=== PATIENT | male | born 1990 | race Caucasian/White ===

== ENCOUNTER 2019-01-21 09:22 | Emergency (ER) | payer SELFPAY ==
[2019-01-21 09:30] VITALS: BP 116/67; PULSE 60; RESP 16; TEMP 37.1; O2SAT 98; BMI 22.3
--- NOTE | 2019-01-21 09:30 | PC.NURSE ---
pt given fluids taking without difficulty
--- NOTE | 2019-01-21 09:36 | HMH.EDGENADL ---
ED Disposition Clinical Impression: Epididymitis Disposition: Home, Self-Care Condition on Discharge: Good Instructions: DI for Epididymitis Additional Instructions: Follow-up with urology if not improved in 4 to 5 days. Return to the emergency room if severe pain or swelling, fever greater than 102 degrees, or unable to urinate. Prescriptions: Ibuprofen [Ibuprofen 800mg Tab] 800 mg PO Q8HP PRN #15 tab PRN Reason: Moderate Pain Doxycycline Monohydrate [Monodox] 100 mg PO BID #20 cap Referrals: Provider,MD Sayra [Primary Care Provider] - Rhys Mishra MD [Staff Physician] - - Critical Care Critical Care Time: No Attestation: On 01/21/19, the high probability of a clinically significant, sudden or life threatening deterioration of the following system(s) required my full and direct attention, intervention and personal management. The time I documented below is in addition to time spent performing reported procedures but includes the following listed in this critical care notation. Medical Decision Making - Sukhi Inquiry Pt receiving controlled substance: No Vital Signs: 01/21/19 09:30 01/21/19 10:03 Temperature 98.8 F 99.8 F H Temperature Source Oral Oral Pulse Rate 120 H Pulse Rate [Left Radial] 60 Respiratory Rate 16 24 Blood Pressure 0/0 L Blood Pressure [Right Arm] 116/67 Blood Pressure Mean [Right Arm] 83 Blood Pressure Source Automatic Cuff Blood Pressure Source [Right Arm] Automatic Cuff Blood Pressure Position Sitting Blood Pressure Position [Right Arm] Sitting 02 Sat by Pulse Oximetry 98 Oxygen Delivery Method Room Air Room Air - Lab Data Lab Results 01/21/19 09:33: Urine Color Dk yellow, Urine Appearance Clear, Urine pH 6.0, Ur Specific [place] >= 1.030, Urine Protein Negative, Urine Glucose (UA) Negative, Urine Ketones Negative, Urine Blood 1+, Urine Nitrate Negative, Urine Bilirubin Negative, Urine Urobilinogen 0.2, Ur Leukocyte Esterase Negative, Urine RBC 3-5, Urine WBC None, Ur Squamous Epith Cells Occasional, Urine Bacteria Trace Orders (Tests/Meds): ED MEDICATIONS Discontinued Medications Generic Name Dose Route Start Last Admin Trade Name Freq PRN Reason Stop Dose Admin Ceftriaxone Sodium 250 mg 01/21/19 11:15 Rocephin 250mg Vial IM 01/21/19 11:16 ONCE ONE Protocol Ibuprofen 800 mg 01/21/19 11:15 Motrin 400mg Tablet PO 01/21/19 11:16 ONCE ONE Lidocaine HCl 0.9 ml 01/21/19 11:15 Lidocaine 1% 10ml Mdv IM 01/21/19 11:16 ONCE ONE - CT Data CT Scan: Abdomen, Pelvis Time Received: 11:[address] Reviewed: Yes: I have viewed the radiologist's interpretation Preliminary Findings: Normal/NAD - US Data US Images: Other (scrotum) ED US Reviewed: Yes: I have viewed radiologist's interpretation Preliminary Findings: Normal/NAD General Adult HPI - General Chief complaint: PAIN Stated complaint: swollen testicle with pain Time Seen by Provider: 01/21/19 09:36 Mode of Arrival: Ambulatory Limitations: No Limitations Description of Symptoms (Recalled from ER Triage Doc. by RN): to ed per pvt car with c/o pain swelling lt testicle starting yesterday states pain shoots up into abd. c/o nausea, denies vomiting, fever, chills, penile drainage. cpta none - History of Present Illness HPI narrative: 2-day history of left testicular pain and swelling. The pain is in the posterior aspect of his testicle and radiates up into the inguinal area. Denies trauma. No fever noted. Testicular pain increases with urination, but no burning dysuria or discharge present. No previous similar symptoms. Denies recent sexual intercourse. States that he has genital warts, and therefore has been abstinent recently. Denies anal intercourse. - Related Data Previous Rx's Medication Instructions Recorded Doxycycline Monohydrate [Monodox] 100 mg PO BID #20 cap 01/21/19 Ibuprofen [Ibuprofen 800mg Tab] 800 mg PO Q8HP PRN #15 tab 01/21
[2019-01-21 09:44] LABS: Microscopic, Urine URINE MICROSCOPIC (MICROSCOPIC)
--- NOTE | 2019-01-21 09:44 | US_ITS ---
US Testicular CLINICAL INDICATION: ITS.REASON: left testicular pain and swelling ORDERING PHYSICIAN: Roc Servin MD PATIENT AGE: 28 years Comparison: None FINDINGS: Both testicles have an unremarkable appearance. No mass evident. There is bilateral testicular blood flow. Epididymides also have an unremarkable appearance. No significant hydrocele varicocele or hematocele evident IMPRESSION: Unremarkable scrotal ultrasound
[2019-01-21 09:47] LABS: Appearance,Urine CLEAR (Clear); Bilirubin,Urine Negative (Negative); Blood, Urine 1+ (Negative); Color,Urine DK YELLOW (Yellow); Glucose,Urine (UA) Negative (Negative); Ketones,Urine Negative (Negative); Leukocyte Esterase,Urine Negative (Negative); Nitrate,Urine Negative (Negative); Protein,Urine Negative (Negative); Specific Gravity, Urine >= 1.030 (1.005-1.030); Urobilinogen,Urine 0.2 EU/dl (0.2)
--- NOTE | 2019-01-21 09:55 | PC.NURSE ---
US aware of orders
[2019-01-21 10:01] LABS: Bacteria,Urine Trace /lpf; Squamous Epithelial Cell,Urine Occasional #/hpf (0-5)
[2019-01-21 10:03] VITALS: BP 0/0; PULSE 120; RESP 24; TEMP 37.7; O2SAT 98
--- NOTE | 2019-01-21 10:04 | CT_ITS ---
CT abdomen pelvis wo con CLINICAL INDICATION: Hematuria with left lower quadrant pain ITS.REASON: L testicle pain, hematuria, r/o stone ORDERING PHYSICIAN: Roc Servin MD PATIENT AGE: 28 years COMPARISON: 02/24/2013 TECHNIQUE: Axial images obtained with sagittal and coronal reformats. All CT scans at the facility use one or more dose reduction, viz: automated exposure control, ma/kV adjustment per patient size (including targeted exams where dose is matched to indication, i.e. head), or iterative reconstruction technique. PROCEDURE: Oral Contrast: None IV Contrast: None . FINDINGS: Lower thorax: No acute finding The liver, gallbladder, spleen, adrenal glands, and pancreas have an unremarkable appearance. No renal or ureteral calculi. No hydronephrosis. Prior appendectomy. No evidence of diverticulitis. No intestinal obstruction or free air. Unremarkable appearing urinary bladder. There are scattered small inguinal nodes. No acute bony anomalies. IMPRESSION: No acute finding
--- NOTE | 2019-01-21 10:36 | PC.NURSE ---
return from ct
[2019-01-21 11:32] VITALS: BP 123/74; PULSE 62; RESP 16; TEMP 36.6; O2SAT 97
[2019-01-23 07:32] LABS: Neisseria gonorrhoeae, NAA Negative (Negative)
== END 2019-01-21 11:33 | disposition home or self-care (01) ==
PROVIDERS: Emergency Provider Emergency Medicine
DX: N45.1 Epididymitis (principal); Z88.5 Allergy status to narcotic agent; F17.210 Nicotine dependence, cigarettes, uncomplicated
CPT/HCPCS: 74176; 76870; 81001; 87491; 87591; 96372; 99283

== ENCOUNTER 2019-12-23 03:37 | Emergency (ER) | payer MEDICAID, SELFPAY ==
--- NOTE | 2019-12-23 03:45 | PC.NURSE ---
pt arrives via ambulation, placed in room 1. aunt at bedside due to issues with head.
[2019-12-23 03:55] VITALS: BP 147/91; PULSE 80; RESP 16; TEMP 37.1; O2SAT 100; BMI 22.1
--- NOTE | 2019-12-23 04:05 | CT_ITS ---
PROCEDURE: CT HEAD/BRAIN WO CON CLINICAL INDICATION: seizure Possible seizure COMPARISON: No exams were available for comparison TECHNIQUE: Axial images obtained. All CT scans at the facility use one or more dose reduction, viz: automated exposure control, ma/kV adjustment per patient size (including targeted exams where dose is matched to indication, i.e. head), or iterative reconstruction technique. FINDINGS: No midline shift, mass effect, intracranial hemorrhage, hydrocephalus, or extra-axial fluid collection is evident. The calvarium has an unremarkable appearance. No mastoid effusion. No sinus air-fluid level. There is prominence of the retropharyngeal soft tissues as noted on the lateral referral nurse view versus overlying juxtaposed soft tissues. IMPRESSION: 1. No acute intracranial findings. 2. Prominent retropharyngeal soft tissues versus summation density on the referral nurse view. Dictated by: Chetan Gonzalez MD 12/23/2019 06:45 Electronically signed by Chetan Gonzalez MD in [facility] 12/23/2019 06:45
--- NOTE | 2019-12-23 04:16 | PC.NURSE ---
pt agreeable to having blood obtained and sent for evaluation. tells nursing he thinks he got high on meth today. no family at bedside at this time.
[2019-12-23 04:23] LABS: Basophils # 0.2 K/mm3 (0-0.2); Basophils % 2.2 % (0.1-2.0); Eosinophils # 0.2 K/mm3 (0.0-0.4); Eosinophils % 2.1 % (0.1-12.0); Hematocrit 43.4 % (42.0-52.0); Lymphocytes # 0.9 K/mm3 (0.7-4.5); Lymphocytes % 9.9 % (10-50); Mean Corpuscular HGB Conc 34.5 g/dL (31.8-35.4); Mean Corpuscular Hemoglobin 31.4 pg (27.0-31.2); Mean Corpuscular Volume 91.1 fl (80-94); Mean Platelet Volume 7.2 fl (7.4-10.4); Monocytes # 0.8 K/mm3 (0.1-1.0); Monocytes % 8.5 % (1.7-9.3); Neutrophils # 6.9 K/mm3 (1.8-7.8); Neutrophils % 77.2 % (37.0-80.0); Platelet Count 276 K/mm3 (142-424); Red Blood Count 4.76 M/mm3 (4.60-6.20); Red Cell Distribution Width 14.9 % (11.5-17.5)
[2019-12-23 04:24] LABS: Appearance,Urine CLEAR (Clear); Blood, Urine TRACE-L (Negative); Color,Urine YELLOW (Yellow); Glucose,Urine (UA) Negative (Negative); Ketones,Urine TRACE (Negative); Leukocyte Esterase,Urine Negative (Negative); Microscopic, Urine URINE MICROSCOPIC (MICROSCOPIC); Nitrate,Urine Negative (Negative); Protein,Urine 1+ (Negative); Urobilinogen,Urine >=8.0 EU/dl (0.2)
[2019-12-23 04:25] LABS: Bilirubin,Urine Negative (Negative)
[2019-12-23 04:25] LABS: Chloride 103 mmol/L (98-107); Sodium 139 mmol/L (136-145)
[2019-12-23 04:28] LABS: Alanine Aminotransferase 46 U/L (12-78); Albumin Level 4.3 g/dl (3.5-5.0); Albumin/Globulin Ratio 1.3 (1.1-1.8); Alkaline Phosphatase 68 U/L (38-126); Anion Gap 10.9 mEq/L (5-15); Aspartate Amino Transferase 31 U/L (17-59); Bilirubin,Total 1.3 mg/dl (0.2-1.3); Blood Urea Nitrogen 10 mg/dl (9-20); Calcium 9.3 mg/dl (8.4-10.2); Carbon Dioxide 28 mmol/L (22.0-30.0); Creatinine Clearance Estimated 133 mL/min (50-200); Estimated Glomerular Filt Rate 116 ml/min (>60); GFR (African American) 140 ML/MIN (>60); Globulin 3.3 g/dL (1.3-3.2); Glucose 93 mg/dl (74-100); Total Protein,Serum 7.6 g/dl (6.3-8.2)
[2019-12-23 04:37] LABS: Barbiturates Screen,Urine Negative ng/ml (<200)
[2019-12-23 04:38] LABS: Benzodiazepines Screen,Urine Negative ng/ml (<200); Cannabinoid Screen,Urine Negative ng/ml (<50)
[2019-12-23 04:39] LABS: Cocaine Screen,Urine Positive ng/ml (<300)
[2019-12-23 04:39] LABS: Ethyl Alcohol < 10 mg/dl (0-10); Salicylate < 1.0 mg/dL (2.0-20.0)
[2019-12-23 04:40] LABS: Methadone Screen,Urine Negative ng/ml (<300); Opiate Screen,Urine Negative ng/ml (<300)
[2019-12-23 04:40] LABS: Potassium 2.9 mmoL/L (3.5-5.1)
[2019-12-23 04:41] LABS: Phencyclidine Screen,Urine Negative ng/ml (<25)
[2019-12-23 04:42] LABS: Bacteria,Urine Trace /lpf
[2019-12-23 04:55] VITALS: BP 152/89; PULSE 110; RESP 16; O2SAT 100
[2019-12-23 05:43] VITALS: BP 147/87; PULSE 100; RESP 16; O2SAT 100
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
[2019-12-23 06:28] VITALS: BP 142/85; PULSE 88; RESP 16; TEMP 37.1; O2SAT 97
[2019-12-26 05:08] LABS: Amphetamine Positive (.); Amphetamines Positive (.); Methamphetamine Positive (.)
[2019-12-26 19:26] LABS: Amphetamine (GC/MS) 1430 ng/mL (Cutoff=500); Methamphetamine (GC/MS) >4000 ng/mL (Cutoff=500)
== END 2019-12-23 06:39 | disposition home or self-care (01) ==
PROVIDERS: Emergency Provider Emergency Medicine
DX: R56.9 Unspecified convulsions (principal); F14.90 Cocaine use, unspecified, uncomplicated; F17.210 Nicotine dependence, cigarettes, uncomplicated
CPT/HCPCS: 70450; 80053; 80305; 80324; 80329; 81001; 85025; 99284

== ENCOUNTER 2021-02-02 23:18 | Emergency (ER) | payer OTHER, SELFPAY ==
[2021-02-02 23:39] VITALS: BP 145/75; PULSE 74; RESP 16; TEMP 36.8; O2SAT 96; BMI 21.7
[2021-02-02 23:52] LABS: Microscopic, Urine URINE MICROSCOPIC (MICROSCOPIC)
[2021-02-02 23:55] LABS: Appearance,Urine CLEAR (Clear); Bilirubin,Urine Negative (Negative); Blood, Urine Negative (Negative); Color,Urine YELLOW (Yellow); Glucose,Urine (UA) Negative (Negative); Ketones,Urine Negative (Negative); Leukocyte Esterase,Urine Negative (Negative); Nitrate,Urine Negative (Negative); Protein,Urine Negative (Negative); Specific Gravity, Urine 1.015 (1.005-1.030)
[2021-02-03] VITALS (7 sets, daily range): BP systolic 92–114; BP diastolic 43–75; PULSE 52–74; RESP 16; TEMP 36.4–36.8; O2SAT 98–100
[2021-02-03 00:05] LABS: Amorphous Sediment,Urine 2+ /lpf; Bacteria,Urine Trace /lpf; WBC,Urine Occasional #/hpf (0-3)
[2021-02-03 00:10] LABS: Amphetamine/Metha Screen,Urine Negative ng/ml (<1000); Barbiturates Screen,Urine Negative ng/ml (<200); Benzodiazepines Screen,Urine Negative ng/ml (<200)
--- NOTE | 2021-02-03 00:10 | CT_ITS ---
PROCEDURE INFORMATION: Exam: CT Abdomen And Pelvis With Contrast Exam date and time: 02/03/2021 12:10 AM Age: 30 years old Clinical indication: Abdominal pain; Generalized; Prior surgery; Surgery date: 6+ months; Surgery type: Appendix; Patient HX: Nausea vomiting abdomen pain; Additional info: N/v TECHNIQUE: Imaging protocol: Computed tomography of the abdomen and pelvis with contrast. Radiation optimization: All CT scans at this facility use at least one of these dose optimization techniques: automated exposure control; mA and/or kV adjustment per patient size (includes targeted exams where dose is matched to clinical indication); or iterative reconstruction. Contrast material: ISOVUE; Contrast volume: 75 ml; Contrast route: IV; Other contrast: Oral, gastroview, 30; COMPARISON: ABDPELWO CT abdomen pelvis wo con 01/21/2019 10:28 AM FINDINGS: Liver: Normal. No mass. Gallbladder and bile ducts: Normal. No calcified stones. No ductal dilation. Pancreas: Normal. No ductal dilation. Spleen: Normal. No splenomegaly. Adrenal glands: Normal. No mass. Kidneys and ureters: Normal. No hydronephrosis. Stomach and bowel: Unremarkable. No obstruction. No mucosal thickening. Appendix: The patient has postsurgical changes from appendectomy. Intraperitoneal space: Unremarkable. No free air. No significant fluid collection. Vasculature: Unremarkable. No abdominal aortic aneurysm. Lymph nodes: Unremarkable. No enlarged lymph nodes. Urinary bladder: Unremarkable as visualized. Reproductive: Unremarkable as visualized. Bones/joints: Unremarkable. No acute fracture. Soft tissues: Unremarkable. IMPRESSION: There is no acute inflammatory process within the abdomen or pelvis. There is no bowel obstruction.
[2021-02-03 00:11] LABS: Cannabinoid Screen,Urine Positive ng/ml (<50); Cocaine Screen,Urine Negative ng/ml (<300)
[2021-02-03 00:12] LABS: Methadone Screen,Urine Negative ng/ml (<300)
[2021-02-03 00:12] LABS: Basophils % 0.3 % (0.1-2.0); Eosinophils # 0.3 K/mm3 (0.0-0.4); Eosinophils % 3.9 % (0.1-12.0); Hematocrit 40.5 % (42.0-52.0); Hemoglobin 14.2 g/dL (14.1-18.0); Lymphocytes # 1.1 K/mm3 (0.7-4.5); Lymphocytes % 14.9 % (10-50); Mean Corpuscular Hemoglobin 32.3 pg (27.0-31.2); Mean Corpuscular Volume 92.1 fl (80-94); Mean Platelet Volume 7.5 fl (7.4-10.4); Monocytes # 0.7 K/mm3 (0.1-1.0); Monocytes % 9.9 % (1.7-9.3); Neutrophils # 5.2 K/mm3 (1.8-7.8); Platelet Count 235 K/mm3 (142-424); Red Cell Distribution Width 13.4 % (11.5-17.5); White Blood Count 7.4 K/mm3 (4.8-10.8)
[2021-02-03 00:13] LABS: Opiate Screen,Urine Negative ng/ml (<300); Phencyclidine Screen,Urine Negative ng/ml (<25)
--- NOTE | 2021-02-03 00:16 | HMH.EDNVD ---
ED Disposition Clinical Impression: Paresthesia Disposition: Home, Self-Care Condition on Discharge: Good Instructions: DI for Numbness/Tingling Additional Instructions: see pcp for follow up Referrals: Carlos Majano MD [Primary Care Provider] - - Critical Care Critical Care Time: No Attestation: On 02/02/21, the high probability of a clinically significant, sudden or life threatening deterioration of the following system(s) required my full and direct attention, intervention and personal management. The time I documented below is in addition to time spent performing reported procedures but includes the following listed in this critical care notation. Medical Decision Making - Medical Records Medical records reviewed: Yes: I reviewed the patient's medical records. - Sukhi Inquiry Pt receiving controlled substance: No Vital Signs: 02/02/21 23:39 02/03/21 00:02 02/03/21 00:30 Temperature 98.2 F Temperature Source Oral Pulse Rate 74 71 Pulse Rate [Right] 74 Respiratory Rate 16 Blood Pressure 113/66 114/59 L Blood Pressure [Right Arm] 145/75 H Blood Pressure Mean 81 76 Blood Pressure Mean [Right Arm] 98 Blood Pressure Source [Right Arm] Automatic Cuff Blood Pressure Position [Right Arm] Supine 02 Sat by Pulse Oximetry 96 99 99 Oxygen Delivery Method Room Air Room Air Room Air 02/03/21 01:00 02/03/21 01:31 02/03/21 02:00 Temperature Temperature Source Pulse Rate 66 70 66 Pulse Rate [Right] Respiratory Rate Blood Pressure 92/43 L 106/52 L 113/59 L Blood Pressure [Right Arm] Blood Pressure Mean 63 73 77 Blood Pressure Mean [Right Arm] Blood Pressure Source [Right Arm] Blood Pressure Position [Right Arm] 02 Sat by Pulse Oximetry 100 99 98 Oxygen Delivery Method Room Air Room Air Room Air - Lab Data Lab results reviewed: Yes: I reviewed the patient's lab results. Lab Results 02/02/21 23:25: Urine Color Yellow, Urine Appearance Clear, Urine pH 8.0, Ur Specific [place] 1.015, Urine Protein Negative, Urine Glucose (UA) Negative, Urine Ketones Negative, Urine Blood Negative, Urine Nitrate Negative, Urine Bilirubin Negative, Urine Urobilinogen 2.0, Ur Leukocyte Esterase Negative, Urine WBC Occasional, Amorphous Sediment 2+, Urine Bacteria Trace 02/02/21 23:25: Urine Opiates Screen Negative, Urine Methadone Screen Negative, Ur Barbituates Screen Negative, Ur Phencyclidine Scrn Negative, Ur Amphetamines Screen Negative, U Benzodiazepines Scrn Negative, Urine Cocaine Screen Negative, U Marijuana (THC) Screen Positive H 02/03/21 00:02: WBC 7.4, RBC 4.40 L, Hgb 14.2, Hct 40.5 L, MCV 92.1, MCH 32.3 H, MCHC 35.0, RDW 13.4, Plt Count 235, MPV 7.5, Neut % (Auto) 71.0, Lymph % (Auto) 14.9, [place] % (Auto) 9.9 H, Eos % (Auto) 3.9, Baso % (Auto) 0.3, Neut # (Auto) 5.2, Lymph # (Auto) 1.1, [place] # (Auto) 0.7, Eos # (Auto) 0.3, Baso # (Auto) 0.0, ESR 10 02/03/21 00:02: Sodium 138, Potassium 3.5, Chloride 108 H, Carbon Dioxide 25, Anion Gap 8.5, BUN 13, Creatinine 0.80, Estimated Creat Clear 138, Estimated GFR 115, Est GFR ( Amer) 139, Glucose 140 H, Calcium 8.7, Total Bilirubin 0.8, AST 39, ALT 46, Alkaline Phosphatase 75, C-Reactive Protein 1.0, Total Protein 6.8, Albumin 4.1, Globulin 2.7, Albumin/Globulin Ratio 1.5, Amylase 62, Lipase 55, Procalcitonin < 0.030 02/03/21 00:02: Magnesium 1.8 Result diagrams: 02/03/21 00:02 02/03/21 00:02 Orders (Tests/Meds): ED MEDICATIONS Generic Name Dose Route Start Last Admin Trade Name Freq PRN Reason Stop Dose Admin Sodium Chloride 1,000 mls @ 999 mls/hr 02/02/21 23:45 02/03/21 00:21 Sod Chlor 0.9% 1000ml Bag IV 02/03/21 00:45 999 mls/hr .Q1H1M LENARD Administration Discontinued Medications Generic Name Dose Route Start Last Admin Trade Name Freq PRN Reason Stop Dose Admin Diatrizoate Meglum/Diatrizoate Sod 30 ml 02/02/21 23:53 02/03/21 00:21 Diatrizoate Evelina 66% & Diatrizoate Na 10% 30ml Udc PO 02/02
[2021-02-03 00:23] LABS: Alanine Aminotransferase 46 U/L (12-78); Albumin Level 4.1 g/dl (3.5-5.0); Albumin/Globulin Ratio 1.5 (1.1-1.8); Alkaline Phosphatase 75 U/L (38-126); Amylase 62 U/L (30-110); Anion Gap 8.5 mEq/L (5-15); Aspartate Amino Transferase 39 U/L (17-59); Bilirubin,Total 0.8 mg/dl (0.2-1.3); Blood Urea Nitrogen 13 mg/dl (9-20); Calcium 8.7 mg/dl (8.4-10.2); Carbon Dioxide 25 mmol/L (22.0-30.0); Chloride 108 mmol/L (98-107); Creatinine Clearance Estimated 138 mL/min (50-200); Estimated Glomerular Filt Rate 115 ml/min (>60); GFR (African American) 139 ML/MIN (>60); Globulin 2.7 g/dL (1.3-3.2); Glucose 140 mg/dl (74-100); Lipase 55 U/L (23-300); Potassium 3.5 mmoL/L (3.5-5.1); Sodium 138 mmol/L (136-145); Total Protein,Serum 6.8 g/dl (6.3-8.2)
[2021-02-03 00:27] LABS: Magnesium 1.8 mg/dl (1.6-2.3)
--- NOTE | 2021-02-03 00:28 | PC.NURSE ---
PO finished PO contrast at this time
[2021-02-03 01:06] LABS: Procalcitonin < 0.030 ng/mL (0.0-2.0)
[2021-02-03 01:08] LABS: Erythrocyte Sedimentation Rate 10 mm/hr (0-15)
== END 2021-02-03 04:23 | disposition home or self-care (01) ==
PROVIDERS: Emergency Provider Emergency Medicine; PCP Internal Medicine Adolescent Medicine
DX: R42 Dizziness and giddiness (principal); R20.2 Paresthesia of skin; H53.8 Other visual disturbances; F17.210 Nicotine dependence, cigarettes, uncomplicated
CPT/HCPCS: 74177; 80053; 80305; 81001; 82150; 83690; 83735; 84145; 85025; 85651; 86140; 96365; 96375; 99283; J2405; Q9967

== ENCOUNTER 2021-03-08 19:29 | Emergency (ER) | payer OTHER, SELFPAY ==
--- NOTE | 2021-03-08 19:26 | ECG_ITS ---
APPROVED REPORT Exam: Resting ECG HR:91 bpm ECG Measurements Heart Rate 91 AXES NM 118 P 75 QRSd 86 QRS 90 QT 348 T 41 QTc 428 Conclusion Normal sinus rhythm Rightward axis Borderline ECG Electronically signed by : Carlos Majano, 03/09/2021 21:34:22
[2021-03-08 19:30] VITALS: BP 139/65; PULSE 84; RESP 17; TEMP 36.6; O2SAT 99; BMI 22.1
--- NOTE | 2021-03-08 19:36 | HMH.EDCP ---
ED Disposition Condition on Discharge: Good - Critical Care Critical Care Time: No <Janell Womack - Last Filed: 03/08/21 19:36> <Hussein Gleason - Last Filed: 03/08/21 21:13> Clinical Impression: Chest pain Qualifiers: Chest pain type: unspecified Qualified Code(s): R07.9 - Chest pain, unspecified Disposition: Home, Self-Care Instructions: DI for Atypical Chest Pain Additional Instructions: see pcp for follow up Attestation: On 03/08/21, the high probability of a clinically significant, sudden or life threatening deterioration of the following system(s) required my full and direct attention, intervention and personal management. The time I documented below is in addition to time spent performing reported procedures but includes the following listed in this critical care notation. Medical Decision Making - Sukhi Inquiry Pt receiving controlled substance: No - YANNA Score for Non-Stemi Age of Patient: <30 years old Systolic Blood Pressure: 80-99 mmHg <Janell Womack - Last Filed: 03/08/21 19:36> - Lab Data Result diagrams: 03/08/21 19:44 03/08/21 19:44 <Hussein Gleason - Last Filed: 03/08/21 21:13> Vital Signs: 03/08/21 19:30 Temperature 97.9 F Temperature Source Oral Pulse Rate [Right Brachial] 84 Respiratory Rate 17 Blood Pressure [Right Arm] 139/65 Blood Pressure Mean [Right Arm] 89 Blood Pressure Source [Right Arm] Automatic Cuff Blood Pressure Position [Right Arm] Sitting 02 Sat by Pulse Oximetry 99 Oxygen Delivery Method Room Air - Lab Data Lab Results 03/08/21 19:44: WBC 16.2 H, RBC 5.21, Hgb 16.3, Hct 46.9, MCV 90.0, MCH 31.3 H, MCHC 34.8, RDW 13.2, Plt Count 233, MPV 7.9, Neut % (Auto) 87.8 H, Lymph % (Auto) 4.5 L, [place] % (Auto) 5.9, Eos % (Auto) 1.0, Baso % (Auto) 0.8, Neut # (Auto) 14.3 H, Lymph # (Auto) 0.7, [place] # (Auto) 1.0, Eos # (Auto) 0.2, Baso # (Auto) 0.1 03/08/21 19:44: Sodium 142, Potassium 3.4 L, Chloride 106, Carbon Dioxide 25, Anion Gap 14.4, BUN 10, Creatinine 1.10, Estimated Creat Clear 96, Estimated GFR 80, Est GFR ( Amer) 96, Glucose 153 H, Calcium 9.6, Troponin I < 0.01 Orders (Tests/Meds): ED MEDICATIONS Generic Name Dose Route Start Last Admin Trade Name Freq PRN Reason Stop Dose Admin Sodium Chloride 1,000 mls @ 999 mls/hr 03/08/21 20:00 03/08/21 20:03 Sod Chlor 0.9% 1000ml Bag IV 03/08/21 21:00 999 mls/hr .Q1H1M LENARD Administration ORDERS Category Date Time Status Complete Blood Count Auto Diff Stat Lab 03/08/21 19:44 Results UDS [Drug Screen,Urine] Stat Lab 03/08/21 19:36 Ordered Medical Decision Narrative: The patient is a 30 year old male who presents with chest pain and marijuana intoxication. Patient is awake, alert, stable on exam. EKG was obtained and showed NSR without ST elevation or depression, rate 91, intervals WNL. Patient endorses chest pain intermittently for a while . Non exertional. No cardiac history. Labs including CBC, BMP, troponin were obtained. Patient requests UDS which was ordered. Patient handed off to Dr. Gleason pending labwork. If normal patient can likely be discharged with follow up. (Janell Womack) Chest Pain HPI <Janell Womack - Last Filed: 03/08/21 19:36> - History of Present Illness MD complaint: chest pain - YANNA Score for Non-Stemi Age of Patient: <30 years old Heart Rate: 70-89 bpm Systolic Blood Pressure: 120-139 mmhg Serum Creatinine: 0.80-1.19 mg/dl CHF [place] Class: I-No CHF Other Risk Factors: None Non-Stemi Risk Score: 50 <Hussein Gleason - Last Filed: 03/08/21 21:13> - General Chief Complaint: Chest Pain Stated Complaint: feels weird suspects might've been given heroin Time Seen by Provider: 03/08/21 19:30 - History of Present Illness HPI narrative: The patient is a 30 year old male who presents to the ED with chest pain. Patient developed some sternal chest pain while he was mowing the lawn earlier. He then stopped and smoked weed with
[2021-03-08 19:52] LABS: Basophils # 0.1 K/mm3 (0-0.2); Basophils % 0.8 % (0.1-2.0); Eosinophils # 0.2 K/mm3 (0.0-0.4); Hematocrit 46.9 % (42.0-52.0); Hemoglobin 16.3 g/dL (14.1-18.0); Lymphocytes # 0.7 K/mm3 (0.7-4.5); Lymphocytes % 4.5 % (10-50); Mean Corpuscular HGB Conc 34.8 g/dL (31.8-35.4); Mean Corpuscular Hemoglobin 31.3 pg (27.0-31.2); Mean Platelet Volume 7.9 fl (7.4-10.4); Monocytes % 5.9 % (1.7-9.3); Neutrophils # 14.3 K/mm3 (1.8-7.8); Neutrophils % 87.8 % (37.0-80.0); Platelet Count 233 K/mm3 (142-424); Red Blood Count 5.21 M/mm3 (4.60-6.20); Red Cell Distribution Width 13.2 % (11.5-17.5); White Blood Count 16.2 K/mm3 (4.8-10.8)
[2021-03-08 20:03] LABS: Chloride 106 mmol/L (98-107); Potassium 3.4 mmoL/L (3.5-5.1); Sodium 142 mmol/L (136-145)
[2021-03-08 20:04] LABS: MANUAL DIFFERENTIAL MANUAL DIFFERENTIAL (MANUAL DIFF)
[2021-03-08 20:06] LABS: Anion Gap 14.4 mEq/L (5-15); Blood Urea Nitrogen 10 mg/dl (9-20); Calcium 9.6 mg/dl (8.4-10.2); Carbon Dioxide 25 mmol/L (22.0-30.0); Creatinine Clearance Estimated 96 mL/min (50-200); Estimated Glomerular Filt Rate 80 ml/min (>60); GFR (African American) 96 ML/MIN (>60); Glucose 153 mg/dl (74-100)
[2021-03-08 20:44] LABS: Troponin I < 0.01 ng/ml (0.00-0.034)
[2021-03-08 21:18] VITALS: BP 99/58; PULSE 112; RESP 18; TEMP 36.8; O2SAT 98
[2021-03-08 21:31] LABS: Platelet Estimate Normal
[2021-03-09 01:37] LABS: Eosinophils % 4 % (0-3); Hypochromasia 1+; Lymphocytes % 8 % (10-50); Monocytes % 11 % (2-9); Neutrophils % 77 % (42-76); Total Cells Counted 100
== END 2021-03-08 21:26 | disposition home or self-care (01) ==
PROVIDERS: Emergency Provider Emergency Medicine
DX: R07.9 Chest pain, unspecified (principal); F12.10 Cannabis abuse, uncomplicated; F17.210 Nicotine dependence, cigarettes, uncomplicated; Z88.5 Allergy status to narcotic agent
CPT/HCPCS: 80048; 84484; 85007; 85025; 93005; 99282

== ENCOUNTER 2021-04-25 11:44 | Emergency (ER) | payer OTHER, SELFPAY ==
[2021-04-25 13:40] VITALS: BP 136/84; PULSE 63; RESP 19; TEMP 36.3; O2SAT 100; BMI 21.9
--- NOTE | 2021-04-25 14:12 | HMH.EDUTC ---
[facility] [place] Disposition Clinical Impression: Exposure to COVID-19 virus Disposition: Home, Self-Care Condition on Discharge: Good Instructions: DI for COVID-19 (Suspected or Confirmed ), Preventing the Spread of Coronavirus Discharge Instructions Additional Instructions: *Monitor Temp, Over the counter Motrin or Tylenol as directed/as needed Tylenol every 4 hours and Motrin every 6 hours (as long as your family doctor has told you that you can take it) for fever or pain. and straight to ER if unable to lower temp less than 101.0 after medication given *Warm salt water gargles may help to soothe the throat *Throat Lozenges *Warm fluids like tea with honey may help to soothe the throat *Sleep elevated *Humidifier/Vaporizer Follow up IMMEDIATELY for new or worsening symptoms or no Noticeable improvement over the next 48-72 hours. 911 for difficulty breathing or swallowing You were tested for today for COVID19 your test result should be back in the next 24-48 hours, You was given handout to access the [facility] portal your results should be available on there later today if you do not have internet or trouble accessing you can call at [phone] You was given a handout with instructions for Self Quarantine and Self isolation for while you wait on test results and what to do if they are positive If you are positive the Health Dept will be contacting you also Make sure to take your Vitamins Vit. C Vit D and Zinc if you can take them Referrals: Provider,Referral, [Primary Care Provider] - As needed Forms: Work/School Release Time of Disposition: 14:14 Medical Decision Making - Sukhi Inquiry Pt receiving controlled substance: No Sukhi was queried for this patient: No Vital Signs: 04/25/21 13:40 Temperature 97.4 F L Temperature Source Oral Pulse Rate [Right Brachial] 63 Respiratory Rate 19 Blood Pressure [Right Arm] 136/84 Blood Pressure Mean [Right Arm] 101 Blood Pressure Source [Right Arm] Automatic Cuff Blood Pressure Position [Right Arm] Sitting 02 Sat by Pulse Oximetry 100 Oxygen Delivery Method Room Air Orders (Tests/Meds): ORDERS Category Date Time Status Covid-19 Nasal PCR ([facility]) Routine Lab 04/25/21 13:[address] [facility] HPI - General Stated complaint: covid test Time Seen by Provider: 04/25/21 14:12 Mode of Arrival: Ambulatory Source of Information: Patient Limitations: No Limitations Description of Symptoms (Recalled from Triage Doc. by RN): COVID TEST D/T EXPOSURE HEENT Symptoms (Recalled from RN notes): No Resp Symptoms (Recalled from RN notes): No Skin Symptoms (Recalled from RN notes): No MS Symptoms (Recalled from RN notes): No Functional Status (Recalled from RN notes): WNL - History of Present Illness Provider Complaint: Patient states that he wanted to get tested for COVID states that several of his close family members have tested postive for COVID and now he is having body aches and chills - Related Data Home Medications Medication Instructions Recorded Confirmed No Known Home Medications 02/03/21 02/03/21 Allergies Allergy/AdvReac Type Severity Reaction Status Date / Time codeine [CODEINE] Allergy Unknown I-RASH Verified 01/21/19 09:41 - Worker's Comp Is this a Worker's Comp case?: No [facility] History - Hepatitis A Screen Drug use history?: No High risk sexual behaviors?: No History of sexually transmitted infection?: No Currently employed?: No Childcare worker?: No Do you have indoor plumbing?: Yes Do you have electricity?: Yes Attestation statement:: This patient has been screened for Hepatitis A risk factors. I have reviewed the patient's past medical history: Yes Medical History: Denies:: Diabetes Mellitus Type 1, Diabetes Mellitus Type 2 - Social History Smoking Status: Current every day smoker Tobacco Type: cigarettes # Packs/Day (cigarettes): 1 Alcohol Intake: never Substance Use Type: heroin Occupational Status: employed ROS
[2021-04-25 14:16] VITALS: BP 136/84; PULSE 63; RESP 19; TEMP 36.3; O2SAT 100
== END 2021-04-25 14:24 | disposition home or self-care (01) ==
PROVIDERS: Emergency Provider Nurse Practitioner
DX: Z20.822 Contact with and (suspected) exposure to COVID-19 (principal); R50.9 Fever, unspecified; F17.210 Nicotine dependence, cigarettes, uncomplicated
CPT/HCPCS: 99202; G0463; U0003

== ENCOUNTER 2021-05-03 16:57 | Emergency (ER) | payer OTHER, SELFPAY ==
[2021-05-03 16:58] VITALS: BP 138/77; PULSE 72; RESP 20; TEMP 36.6; O2SAT 98; BMI 29.0
--- NOTE | 2021-05-03 16:58 | HMH.EDAMS ---
ED Disposition Clinical Impression: Seizure Disposition: Home, Self-Care Condition on Discharge: Good Instructions: DI for Altered Mental Status Additional Instructions: Do not drive or operate machinery without being cleared to do so by a neurologist. You may have had a seizure today. - Critical Care Critical Care Time: No Attestation: On , the high probability of a clinically significant, sudden or life threatening deterioration of the following system(s) required my full and direct attention, intervention and personal management. The time I documented below is in addition to time spent performing reported procedures but includes the following listed in this critical care notation. Medical Decision Making - Medical Records Medical records reviewed: Yes: I reviewed the patient's medical records. - Sukhi Inquiry Pt receiving controlled substance: No Vital Signs: 05/03/21 16:58 Temperature 97.8 F Temperature Source Oral Pulse Rate [Left Radial] 72 Respiratory Rate 20 Blood Pressure [Right Arm] 138/77 Blood Pressure Mean [Right Arm] 97 Blood Pressure Source [Right Arm] Automatic Cuff Blood Pressure Position [Right Arm] Sitting 02 Sat by Pulse Oximetry 98 Oxygen Delivery Method Room Air Orders (Tests/Meds): ED MEDICATIONS Generic Name Dose Route Start Last Admin Trade Name Freq PRN Reason Stop Dose Admin Sodium Chloride 1,000 mls @ 999 mls/hr 05/03/21 17:15 05/03/21 17:05 Sod Chlor 0.9% 1000ml Bag IV 05/03/21 18:15 999 mls/hr .Q1H1M LENARD Administration - Reevaluation(s) Time: 18:03 Reevaluation #1: Wide-awake. His oxygen saturations are 100% on room air. He feels well. I believe that it is safe to discharge this patient at this time. The patient states that he has a history of seizure disorder. Therefore, it is possible that the patient had a seizure earlier today but he is no longer postictal. Medical Decision Narrative: The patient appears stable. He received Narcan prior to arrival. He has been observed in the emergency department in excess of 1 hour. He continues to be alert without any drowsiness. The patient will be discharged in stable and improved condition. Altered Mental Status HPI - General Chief Complaint: Altered Mental Status Stated Complaint: OD Time Seen by Provider: 05/03/21 16:58 Mode of Arrival: EMS Source of Information: Patient, EMS - History of Present Illness HPI narrative: The patient was brought in by EMS for altered mental status. He was working outside and became unresponsive. When EMS arrived to the scene he had shallow respirations and was unresponsive with pinpoint pupils. His blood glucose was 117 at the scene. The patient received 2 doses of 2 mg each of Narcan after which the patient woke up. The patient denies using opiates. He admits to using amphetamine 3 days ago. States that he is thirsty. MD complaint: altered mental status - Related Data Home Medications Medication Instructions Recorded Confirmed No Known Home Medications 02/03/21 02/03/21 Allergies Allergy/AdvReac Type Severity Reaction Status Date / Time codeine [CODEINE] Allergy Unknown I-RASH Verified 01/21/19 09:41 [facility] History - Hepatitis A Screen Drug use history?: Yes Attestation statement:: This patient has been screened for Hepatitis A risk factors. I have reviewed the patient's past medical history: No Medical History: Denies:: Diabetes Mellitus Type 1, Diabetes Mellitus Type 2 - Social History Smoking Status: Current every day smoker Tobacco Type: cigarettes # Packs/Day (cigarettes): 1 Alcohol Intake: never Substance Use Type: heroin Occupational Status: employed ROS Obtained: Yes All systems reviewed & no additional complaints Physical Exam - General General appearance: alert, in no apparent distress - Head Head exam: atraumatic, normocephalic - Eye Eye exam: Present: normal appearance, PERRL, EOMI - ENT EN
[2021-05-03 17:30] VITALS: BP 124/81; PULSE 74; O2SAT 99
[2021-05-03 18:01] VITALS: BP 139/82; PULSE 69; O2SAT 98
[2021-05-03 18:06] VITALS: BP 139/82; PULSE 74; RESP 16; TEMP 36.9; O2SAT 99
== END 2021-05-03 18:11 | disposition home or self-care (01) ==
PROVIDERS: Emergency Provider Emergency Medicine
DX: R56.9 Unspecified convulsions (principal); R41.82 Altered mental status, unspecified; F17.210 Nicotine dependence, cigarettes, uncomplicated
CPT/HCPCS: 99282

== ENCOUNTER → 2021-05-19 12:33 | Outpatient (CLI) | payer OTHER, SELFPAY ==
[2021-05-19 13:02] LABS: Basophils # 0.1 K/mm3 (0-0.2); Basophils % 0.6 % (0.1-2.0); Eosinophils # 0.1 K/mm3 (0.0-0.4); Eosinophils % 1.2 % (0.1-12.0); Hematocrit 45.9 % (42.0-52.0); Hemoglobin 14.9 g/dL (14.1-18.0); Lymphocytes # 1.1 K/mm3 (0.7-4.5); Lymphocytes % 13.8 % (10-50); Mean Corpuscular HGB Conc 32.5 g/dL (31.8-35.4); Mean Corpuscular Hemoglobin 31.5 pg (27.0-31.2); Mean Corpuscular Volume 96.9 fl (80-94); Monocytes # 0.8 K/mm3 (0.1-1.0); Neutrophils # 6.1 K/mm3 (1.8-7.8); Neutrophils % 74.3 % (37.0-80.0); Platelet Count 285 K/mm3 (142-424); Red Blood Count 4.74 M/mm3 (4.60-6.20); Red Cell Distribution Width 13.2 % (11.5-17.5); White Blood Count 8.2 K/mm3 (4.8-10.8)
[2021-05-19 13:14] LABS: Prothrombin Time 11.9 seconds (10.1-12.5)
[2021-05-19 13:21] LABS: INR 1.01 (0.9-1.1)
[2021-05-19 13:44] LABS: Chloride 103 mmol/L (98-107); Potassium 4.2 mmoL/L (3.5-5.1); Sodium 139 mmol/L (136-145)
[2021-05-19 13:46] LABS: Blood Urea Nitrogen 12 mg/dl (9-20); Estimated Glomerular Filt Rate 114 ml/min (>60); GFR (African American) 138 ML/MIN (>60)
[2021-05-19 13:47] LABS: Alanine Aminotransferase 178 U/L (12-78); Albumin Level 4.3 g/dl (3.5-5.0); Albumin/Globulin Ratio 1.5 (1.1-1.8); Alkaline Phosphatase 86 U/L (38-126); Anion Gap 12.2 mEq/L (5-15); Aspartate Amino Transferase 77 U/L (17-59); Bilirubin,Total 0.9 mg/dl (0.2-1.3); Calcium 9.5 mg/dl (8.4-10.2); Carbon Dioxide 28 mmol/L (22.0-30.0); Globulin 2.8 g/dL (1.3-3.2); Glucose 92 mg/dl (74-100); Total Protein,Serum 7.1 g/dl (6.3-8.2)
[2021-05-20 11:01] LABS: Hep B Surface Ab, Qual Reactive (.); Hepatitis B Surface Antigen Positive (Negative)
[2021-05-24 15:07] LABS: HBV IU/mL <10 IU/mL (.)
[2021-05-25 18:16] LABS: Hepatitis C Genotype 1a (.)
[2021-09-27 16:35] LABS: HBV IU/mL <10
== END ==
PROVIDERS: Visit Provider Nurse Practitioner
DX: B19.10 Unspecified viral hepatitis B without hepatic coma (principal); B18.2 Chronic viral hepatitis C
CPT/HCPCS: 36415; 80053; 85025; 85610; 86706; 87340; 87517; 87522; 87902; 87912

== ENCOUNTER → 2021-06-26 14:33 | Outpatient (CLI) | payer OTHER, SELFPAY ==
[2021-06-26 15:15] LABS: Basophils % 0.4 % (0.1-2.0); Eosinophils # 0.2 K/mm3 (0.0-0.4); Eosinophils % 2.9 % (0.1-12.0); Hematocrit 42.2 % (42.0-52.0); Hemoglobin 14.4 g/dL (14.1-18.0); Lymphocytes % 17.3 % (10-50); Mean Corpuscular HGB Conc 34.2 g/dL (31.8-35.4); Mean Corpuscular Hemoglobin 32.4 pg (27.0-31.2); Mean Corpuscular Volume 94.8 fl (80-94); Monocytes # 0.6 K/mm3 (0.1-1.0); Monocytes % 10.1 % (1.7-9.3); Neutrophils # 3.9 K/mm3 (1.8-7.8); Neutrophils % 69.4 % (37.0-80.0); Platelet Count 284 K/mm3 (142-424); Red Blood Count 4.45 M/mm3 (4.60-6.20); Red Cell Distribution Width 14.8 % (11.5-17.5); White Blood Count 5.6 K/mm3 (4.8-10.8)
[2021-06-26 15:18] LABS: INR 0.98 (0.9-1.1); Prothrombin Time 11.1 seconds (10.1-12.5)
[2021-06-26 16:12] LABS: Alanine Aminotransferase 19 U/L (12-78); Albumin Level 4.3 g/dl (3.5-5.0); Albumin/Globulin Ratio 1.4 (1.1-1.8); Alkaline Phosphatase 59 U/L (38-126); Anion Gap 12.3 mEq/L (5-15); Aspartate Amino Transferase 27 U/L (17-59); Bilirubin,Total 0.6 mg/dl (0.2-1.3); Blood Urea Nitrogen 8 mg/dl (9-20); Calcium 9.2 mg/dl (8.4-10.2); Carbon Dioxide 28 mmol/L (22.0-30.0); Chloride 105 mmol/L (98-107); Estimated Glomerular Filt Rate 133 ml/min (>60); GFR (African American) 161 ML/MIN (>60); Globulin 3.1 g/dL (1.3-3.2); Glucose 77 mg/dl (74-100); Potassium 4.3 mmoL/L (3.5-5.1); Sodium 141 mmol/L (136-145); Total Protein,Serum 7.4 g/dl (6.3-8.2)
== END ==
PROVIDERS: Visit Provider Nurse Practitioner
DX: B18.2 Chronic viral hepatitis C (principal)
CPT/HCPCS: 36415; 80053; 85025; 85610; 87522

== ENCOUNTER → 2021-07-10 15:27 | Outpatient (CLI) | payer OTHER, SELFPAY ==
[2021-07-10 16:50] LABS: Alanine Aminotransferase 19 U/L (12-78); Albumin Level 4.6 g/dl (3.5-5.0); Albumin/Globulin Ratio 1.7 (1.1-1.8); Alkaline Phosphatase 65 U/L (38-126); Anion Gap 11.9 mEq/L (5-15); Aspartate Amino Transferase 28 U/L (17-59); Bilirubin,Total 0.7 mg/dl (0.2-1.3); Blood Urea Nitrogen 12 mg/dl (9-20); Calcium 9.4 mg/dl (8.4-10.2); Carbon Dioxide 30 mmol/L (22.0-30.0); Chloride 103 mmol/L (98-107); Estimated Glomerular Filt Rate 114 ml/min (>60); GFR (African American) 138 ML/MIN (>60); Globulin 2.7 g/dL (1.3-3.2); Glucose 79 mg/dl (74-100); Potassium 3.9 mmoL/L (3.5-5.1); Sodium 141 mmol/L (136-145); Total Protein,Serum 7.3 g/dl (6.3-8.2)
== END ==
PROVIDERS: Visit Provider Nurse Practitioner
DX: B18.2 Chronic viral hepatitis C (principal)
CPT/HCPCS: 36415; 80053

== ENCOUNTER → 2021-08-07 12:33 | Outpatient (CLI) | payer OTHER, SELFPAY ==
[2021-08-07 13:44] LABS: Chloride 108 mmol/L (98-107); Potassium 4.3 mmoL/L (3.5-5.1); Sodium 140 mmol/L (136-145)
[2021-08-07 13:47] LABS: Alanine Aminotransferase 17 U/L (12-78); Albumin Level 4.2 g/dl (3.5-5.0); Albumin/Globulin Ratio 1.5 (1.1-1.8); Alkaline Phosphatase 63 U/L (38-126); Anion Gap 8.3 mEq/L (5-15); Aspartate Amino Transferase 24 U/L (17-59); Bilirubin,Total 0.6 mg/dl (0.2-1.3); Blood Urea Nitrogen 11 mg/dl (9-20); Carbon Dioxide 28 mmol/L (22.0-30.0); Estimated Glomerular Filt Rate 88 ml/min (>60); GFR (African American) 107 ML/MIN (>60); Globulin 2.8 g/dL (1.3-3.2)
[2021-08-07 13:48] LABS: Calcium 9.2 mg/dl (8.4-10.2); Glucose 79 mg/dl (74-100)
== END ==
PROVIDERS: Visit Provider Nurse Practitioner
DX: B18.2 Chronic viral hepatitis C (principal)
CPT/HCPCS: 36415; 80053

== ENCOUNTER → 2021-09-04 12:50 | Outpatient (CLI) | payer OTHER, SELFPAY ==
[2021-09-04 13:19] LABS: Basophils % 0.4 % (0.1-2.0); Eosinophils # 0.1 K/mm3 (0.0-0.4); Eosinophils % 2.1 % (0.1-12.0); Hematocrit 43.6 % (42.0-52.0); Hemoglobin 14.6 g/dL (14.1-18.0); Lymphocytes # 0.8 K/mm3 (0.7-4.5); Lymphocytes % 15.9 % (10-50); Mean Corpuscular HGB Conc 33.5 g/dL (31.8-35.4); Mean Corpuscular Hemoglobin 31.8 pg (27.0-31.2); Mean Corpuscular Volume 94.8 fl (80-94); Mean Platelet Volume 8.3 fl (7.4-10.4); Monocytes # 0.5 K/mm3 (0.1-1.0); Monocytes % 9.7 % (1.7-9.3); Neutrophils # 3.6 K/mm3 (1.8-7.8); Neutrophils % 71.9 % (37.0-80.0); Platelet Count 211 K/mm3 (142-424); Red Cell Distribution Width 13.3 % (11.5-17.5)
[2021-09-04 13:30] LABS: INR 1.02 (0.9-1.1); Prothrombin Time 11.5 seconds (10.1-12.5)
[2021-09-04 13:45] LABS: Chloride 105 mmol/L (98-107); Potassium 4.5 mmoL/L (3.5-5.1); Sodium 141 mmol/L (136-145)
[2021-09-04 13:47] LABS: Alanine Aminotransferase 17 U/L (12-78); Aspartate Amino Transferase 24 U/L (17-59); Blood Urea Nitrogen 15 mg/dl (9-20); Estimated Glomerular Filt Rate 114 ml/min (>60); GFR (African American) 138 ML/MIN (>60)
[2021-09-04 13:48] LABS: Albumin Level 4.4 g/dl (3.5-5.0); Albumin/Globulin Ratio 1.7 (1.1-1.8); Alkaline Phosphatase 57 U/L (38-126); Anion Gap 10.5 mEq/L (5-15); Bilirubin,Total 0.5 mg/dl (0.2-1.3); Calcium 9.3 mg/dl (8.4-10.2); Carbon Dioxide 30 mmol/L (22.0-30.0); Globulin 2.6 g/dL (1.3-3.2); Glucose 70 mg/dl (74-100)
== END ==
PROVIDERS: Visit Provider Nurse Practitioner
DX: B18.2 Chronic viral hepatitis C (principal)
CPT/HCPCS: 36415; 80053; 85025; 85610; 87522

== ENCOUNTER 2021-12-23 22:33 | Observation (INO) | payer OTHER, SELFPAY ==
[2021-12-23 22:34] VITALS: BP 126/70; PULSE 82; RESP 18; TEMP 36.9; O2SAT 98; BMI 21.8
--- NOTE | 2021-12-23 23:16 | XR_ITS ---
PROCEDURE INFORMATION: Exam: XR Right Knee Exam date and time: 12/23/2021 11:17 PM Age: 31 years old Clinical indication: Injury or trauma; Other: Laceration; Patella or knee; Right; Foreign body involvement not specified TECHNIQUE: Imaging protocol: XR Right knee. Views: 3 views. COMPARISON: No relevant prior studies available. FINDINGS: Bones/joints: Intra-articular gas is demonstrated compatible with a penetrating injury to the joint. No acute bony abnormality. Soft tissues: No radiopaque foreign body. IMPRESSION: Intra-articular gas is confirmed compatible with penetrating injury.
[2021-12-23 23:36] VITALS: BMI 23.1
--- NOTE | 2021-12-23 23:36 | CT_ITS ---
PROCEDURE INFORMATION: Exam: CT Right Lower Extremity Without Contrast, Knee Exam date and time: 12/23/2021 11:51 PM Age: 31 years old Clinical indication: Injury or trauma; Other: Laceration to knee; Other: Pain and air seen in joint on the xrays; Patella or knee; Right; Foreign body involvement not specified; Additional info: Lac, abn XR TECHNIQUE: Imaging protocol: CT of the Right lower extremity without contrast was performed. Exam focused on the knee. Radiation optimization: All CT scans at this facility use at least one of these dose optimization techniques: automated exposure control; mA and/or kV adjustment per patient size (includes targeted exams where dose is matched to clinical indication); or iterative reconstruction. COMPARISON: CR XR KNEE RT 3V 12/23/2021 11:17 PM FINDINGS: Bones/joints: Intra-articular gas is demonstrated throughout the knee joint. There is no acute bony injury. Soft tissues: There is a medial cutaneous defect with bandage material in place. No radiopaque foreign body is appreciated. IMPRESSION: Penetrating injury to the knee joint with intra-articular gas. No radiopaque foreign body identified. Entry point is medial to the medial femoral condyle.
[2021-12-24] VITALS (23 sets, daily range): BP systolic 118–163; BP diastolic 58–92; PULSE 51–88; RESP 10–18; TEMP 36.1–43; O2SAT 95–100; BMI 19.5; BMI 20.8
--- NOTE | 2021-12-24 | PC.NURSE ---
Dr. Gleason s/w Dr. Hernandez
--- NOTE | 2021-12-24 00:01 | HMH.EDWNDL ---
ED Disposition Clinical Impression: Penetrating injury of right lower extremity Disposition: Admitted As Inpatient Condition on Discharge: Serious - Critical Care Critical Care Time: No Attestation: On 12/23/21, the high probability of a clinically significant, sudden or life threatening deterioration of the following system(s) required my full and direct attention, intervention and personal management. The time I documented below is in addition to time spent performing reported procedures but includes the following listed in this critical care notation. Medical Decision Making - Medical Records Medical records reviewed: Yes: I reviewed the patient's medical records. - Sukhi Inquiry Pt receiving controlled substance: No Vital Signs: 12/23/21 22:34 Temperature 98.4 F Temperature Source Oral Pulse Rate [Right] 82 Respiratory Rate 18 Blood Pressure [Right Arm] 126/70 Blood Pressure Mean [Right Arm] 88 Blood Pressure Source [Right Arm] Automatic Cuff 02 Sat by Pulse Oximetry 98 Oxygen Delivery Method Room Air - Lab Data Lab results reviewed: Yes: I reviewed the patient's lab results. Orders (Tests/Meds): ED MEDICATIONS Generic Name Dose Route Start Last Admin Trade Name Freq PRN Reason Stop Dose Admin Cefazolin Sodium 2 gm/ Sodium 100 mls @ 200 mls/hr 12/24/21 00:14 Chloride IV 12/24/21 00:43 PREOP ONE Cefazolin Sodium 1 gm/ Sodium 50 mls @ 100 mls/hr 12/24/21 08:00 Chloride IV 01/07/22 07:59 Q8H LENARD Discontinued Medications Generic Name Dose Route Start Last Admin Trade Name Freq PRN Reason Stop Dose Admin Tetanus/Reduced Diphtheria/Acell Pertussis 0.5 ml 12/24/21 00:15 Tet/Diphth/Pert-Adult 0.5ml Syringe IM 12/24/21 00:16 .ONCE ONE ORDERS Category Date Time Status CRP [C-Reactive Protein] Stat Lab 12/23/21 23:36 Received Complete Blood Count Auto Diff Stat Lab 12/23/21 23:36 Received Comprehensive Metabolic Panel Stat Lab 12/23/21 23:36 Received Erythrocyte Sedimentation Rate Stat Lab 12/23/21 23:36 Received Lactic Acid Stat Lab 12/24/21 00:25 Received Procalcitonin Stat Lab 12/23/21 23:51 Received Rapid PCR Covid and Flu A/B Stat Lab 12/24/21 00:13 Ordered Blood Culture Stat Micro 12/24/21 00:25 Received - Radiology Data #1 Image(s): Knee Image Reviewed: Yes I have reviewed radiologist's interpretation Preliminary Findings: Abnormal - CT Data CT Scan: Other (knee) Time Received: 00:[address] Reviewed: Yes: I have viewed the radiologist's interpretation Preliminary Findings: Abnormal - Physician Consults Physician Consulted: brooks Reason -: Admission Medical Decision Narrative: has intra-articular gas /air rt knee will need surg Wound/Laceration HPI - General Chief Complaint: Wound/Laceration Stated Complaint: AO 2220 Knee laceration Time Seen by Provider: 12/24/21 00:01 Mode of Arrival: Family Vehicle Source of Information: Patient, Significant Other, Medical Record Limitations: No Limitations Description of Symptoms (Recalled from ER Triage Doc. by RN): Pt presents with a laceration to his R knee. He states he was chopping wood with a hatchet when it bounced off the wood and into his knee. Pt came straight to ER. 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 No active bleed, there is clotting noted in the wound bed, no obvious visual of bone or tendon/ligament. Pt does not recall last tetanus, he thinks it was 5 yr ago. - History of Present Illness HPI narrative: lac to rt knee as noted above just prior to arrival - Onset (ago): hour(s) Extremity Location: Right: knee Place: home Patient tetanus UTD: No Context: accidental Associated symptoms: none - Related Data Home Medications Medication Instructions Recorded Confirmed No Known Home Medications 12/23/21 12/23/21 Allergies Allergy/AdvReac Type Severity Reaction Status Date / Time codeine [CODEINE] Allergy Unknown I-RASH Verified 04/26
--- NOTE | 2021-12-24 00:26 | PC.NURSE ---
Applied wet to dry dressing on right knee and wrapped loosely
[2021-12-24 00:27] LABS: Basophils # 0.1 K/mm3 (0-0.2); Basophils % 1.7 % (0.1-2.0); Eosinophils # 0.2 K/mm3 (0.0-0.4); Eosinophils % 2.7 % (0.1-12.0); Hematocrit 45.3 % (42.0-52.0); Hemoglobin 15.7 g/dL (14.1-18.0); Lymphocytes # 1.1 K/mm3 (0.7-4.5); Lymphocytes % 15.9 % (10-50); Mean Corpuscular HGB Conc 34.7 g/dL (31.8-35.4); Mean Corpuscular Hemoglobin 33.3 pg (27.0-31.2); Mean Corpuscular Volume 95.8 fl (80-94); Monocytes # 0.7 K/mm3 (0.1-1.0); Monocytes % 9.4 % (1.7-9.3); Neutrophils % 70.2 % (37.0-80.0); Platelet Count 235 K/mm3 (142-424); Red Blood Count 4.73 M/mm3 (4.60-6.20); Red Cell Distribution Width 13.7 % (11.5-17.5); White Blood Count 7.1 K/mm3 (4.8-10.8)
[2021-12-24 00:40] LABS: Coronavirus 19, PCR Not Detected (NotDetected); Influenza A, PCR Not Detected (NotDetected); Influenza B, PCR Not Detected (NotDetected)
[2021-12-24 00:41] LABS: Alanine Aminotransferase 42 U/L (12-78); Albumin Level 4.4 g/dl (3.5-5.0); Albumin/Globulin Ratio 1.6 (1.1-1.8); Alkaline Phosphatase 67 U/L (38-126); Anion Gap 10.2 mEq/L (5-15); Aspartate Amino Transferase 38 U/L (17-59); Bilirubin,Total 0.4 mg/dl (0.2-1.3); Blood Urea Nitrogen 9 mg/dl (9-20); Calcium 9.1 mg/dl (8.4-10.2); Carbon Dioxide 28 mmol/L (22.0-30.0); Chloride 105 mmol/L (98-107); Creatinine Clearance Estimated 129 mL/min (50-200); Estimated Glomerular Filt Rate 114 ml/min (>60); GFR (African American) 138 ML/MIN (>60); Globulin 2.8 g/dL (1.3-3.2); Glucose 92 mg/dl (74-100); Lactic Acid 0.7 mmol/L (0.7-2.1); Potassium 4.2 mmoL/L (3.5-5.1); Sodium 139 mmol/L (136-145); Total Protein,Serum 7.2 g/dl (6.3-8.2)
[2021-12-24 00:46] LABS: C-Reactive Protein 1.2 mg/L (0-4)
[2021-12-24 01:00] LABS: Erythrocyte Sedimentation Rate 11 mm/hr (0-15); Procalcitonin 0.033 ng/mL (0.0-2.0)
--- NOTE | 2021-12-24 01:29 | PC.NURSE ---
pt arrived to floor from ED via wheelchair at this time
--- NOTE | 2021-12-24 04:03 | PC.NURSE ---
Pt admitted with laceration to R knee that will require surgery this AM. Pt has been NPO since midnight, medicating per OCT for pain. Iv infusing per order. Dressing to R knee that was applied in ER is c/d/i. Both lower extremities are warm to touch, pink/ghosh in color. Pulses +3 and cap refill < 3 in both lower extremities. No other complaints at this time voiced at this time. Significant other at bedside. Call light in reach.
--- NOTE | 2021-12-24 06:03 | PC.NURSE ---
Surgery team paged, Spoke with Salma Villanueva and Lucila.
--- NOTE | 2021-12-24 07:21 | HMH.ORTHHP ---
*Admission Date: 12/24/21 *Reason for consult:: 1. Laceration, right thigh 2. Traumatic arthrotomy, right knee *History of present illness: Patient is a 31-year-old male who presented to the ER at [facility] last night following an injury to the medial aspect of his right knee, just prior to arrival.? Patient reports that he was cutting some wood with a hatchet which slipped and hit the medial aspect of his right knee. Following evaluation in the ER including x-rays and CT scan, patient was admitted to hospital for management of traumatic arthrotomy of the right knee. He denies any other injuries or pain elsewhere.? Patient denies any distal tingling, numbness or weakness.? Patient reports that he had tetanus injection within the last 5 years. He has history of drug abuse and hepatitis B and hepatitis C positive. No history of any previous significant knee injuries or surgery.? He is a chronic smoker. [facility] History I have reviewed the patient's past medical history: Yes Medical History: Reports:: Seizures Denies:: Cancer, Diabetes Mellitus Type 1, Diabetes Mellitus Type 2, MRSA *Have you ever received a pneumonia vaccine?: No *Have you received a flu vaccine this season?: No Other Medical History: Comment Only: Liver Disease (HEP B & C) Other Surgeries: Yes: Appendectomy, Other (ORAL SURGERY) Amputation: No Fractures: No - *Social History Last grade of school completed: 11th or 12th Smoking Status: Current every day smoker Tobacco Type: cigarettes # Packs/Day (cigarettes): 2 Alcohol Intake: current Alcohol Intake Frequency:: a few times a month Substance Use Type: former substance user, marijuana, heroin Last Used Substance: hours (ago) *Occupational Status:: employed Housing: house Household Members: significant other, children *Travel in the last 8 weeks: None Family Hx:: Diabetes Review of Systems - Review of Systems Review of systems:: pertinent systems reviewed and negative unless documented below - Constitutional Denies chills, Denies fever(s) - Eyes Denies change in vision - ENT Denies abnormal hearing - *Cardiovascular Denies chest pain, Denies shortness of breath - *Respiratory Denies chest congestion, Denies cough - *Gastrointestinal Denies abdominal pain, Denies change in bowel habits - *Musculoskeletal Reports abnormal walking, Reports joint pain - *Neurologic Denies headache(s), Denies tingling/numbness/burning sensations, Denies seizure-like activity - Endocrine Denies cold intolerance, Denies heat intolerance - Hematologic/Lymphatic Denies easy bleeding, Denies easy bruising - Allergic/Immunologic Denies GI upset with certain foods Meds Home Medications Medication Instructions Recorded Confirmed Type Ibuprofen [Ibuprofen 800mg 800 mg PO Q8HP PRN #30 tab 12/25/21 Rx Tablet] cephALEXin [Cephalexin 500mg Tab] 1,000 mg PO Q12H 7 Days #28 tab 12/25/21 Rx Allergies Allergy/AdvReac Type Severity Reaction Status Date / Time codeine Allergy Rash Verified 12/24/21 03:55 Exam Vital signs and Labs for Last 24 Hours: Temp Pulse Resp BP Pulse Ox 98 F 64 16 124/68 98 12/24/21 04:00 12/24/21 04:00 12/24/21 04:00 12/24/21 04:00 12/24/21 04:00 Laboratory Results - last 24 hr 12/24/21 00:18: SARS-CoV-2 (PCR) Not detected, Influenza A Untype (PCR) Not detected, Influenza Type B (PCR) Not detected 12/24/21 00:25: WBC 7.1, RBC 4.73, Hgb 15.7, Hct 45.3, MCV 95.8 H, MCH 33.3 H, MCHC 34.7, RDW 13.7, Plt Count 235, MPV 8.0, Neut % (Auto) 70.2, Lymph % (Auto) 15.9, [place] % (Auto) 9.4 H, Eos % (Auto) 2.7, Baso % (Auto) 1.7, Neut # (Auto) 5.0, Lymph # (Auto) 1.1, [place] # (Auto) 0.7, Eos # (Auto) 0.2, Baso # (Auto) 0.1, ESR 11 12/24/21 00:25: Sodium 139, Potassium 4.2, Chloride 105, Carbon Dioxide 28, Anion Gap 10.2, BUN 9, Creatinine 0.80, Estimated Creat Clear 129, Estimated GFR 114, Est GFR ( Amer) 138, Glucose 92, Calcium 9.1, Total Bilirubin 0.4
--- NOTE | 2021-12-24 08:14 | P.PN_ITS ---
[facility] Anesthesia Checklist - Patient Identification Patient Identification: Arm Band, Verbal (Name & ) - Structural Data Admitted From: Emergency Dept Planned Operative Procedure/s: Right Knee Washout Consent for Planned Operative Procedure(s) Verified: Yes Verified Documents: Surgical Consent - NPO Status Verified Time NPO: 00:00 - Chart Verification Results Verified: CBC, BMP - Airway Assessment C-Spine Mobility Assessed: Yes TMJ Mobility Assessed: Yes Dentition: Poor Dentition - Neurological Assessment Level of Consciousness: Awake, Alert, Appropriate - Anesthesia Plan Anesthesia Risk discussed: Yes ASA Class: II Anesthesia Type: General [facility] History Medical History: Reports:: Seizures Denies:: Cancer, Diabetes Mellitus Type 1, Diabetes Mellitus Type 2, MRSA *Have you ever received a pneumonia vaccine?: No *Have you received a flu vaccine this season?: No Other Medical History: Comment Only: Liver Disease (HEP B & C) Anesthesia experience/problems:: none Other Surgeries: Yes: Appendectomy, Other (ORAL SURGERY) Amputation: No Fractures: No - *Social History Last grade of school completed: 11th or 12th Smoking Status: Current every day smoker Tobacco Type: cigarettes # Packs/Day (cigarettes): 2 Alcohol Intake: current Alcohol Intake Frequency:: a few times a month Substance Use Type: former substance user, marijuana, heroin Last Used Substance: hours (ago) *Occupational Status:: employed Housing: house Household Members: significant other, children *Travel in the last 8 weeks: None Family Hx:: Diabetes
--- NOTE | 2021-12-24 09:17 | P.CONPHA_ITS ---
[facility] Pharmacy VTE Monitoring - Patient Demographics Admission date: 12/24/21 Report Date: 12/24/21 Time: 09:17 Allergies/Adverse Reactions: Patient Allergies codeine Allergy (Verified 12/24/21 03:55) Rash Height: 1.7 m Weight: 60.146 kg Patient Problems: Current Active Problems Penetrating injury of right lower extremity (Acute) Laceration of right thigh (Acute) Injury of right knee (Acute) - VTE Risk Labs: VTE Related Lab Results Hgb 15.7 g/dL (14.1-18.0) 12/24/21 00:25 Hct 45.3 % (42.0-52.0) 12/24/21 00:25 Plt Count 235 K/mm3 (142-424) 12/24/21 00:25 BUN 9 mg/dl (9-20) 12/24/21 00:25 Creatinine 0.80 mg/dl (0.66-1.25) 12/24/21 00:25 Estimated Creat Clear 129 mL/min (50-200) 12/24/21 00:25 Was VTE Risk Assessment Performed: Yes VTE Score: 1 VTE Risk Level: Very Low Risk - Prophylaxis VTE Prophylaxis Ordered?: Yes Types of VTE Prophylaxis: TEDS Knee High Location of Applied Device: Left Leg
--- NOTE | 2021-12-24 09:58 | PC.NURSE ---
[id number] report called to NARAYAN Berry [id number] transported to med surg rm [id number] via hospital bed w/adrian rails up and left in care of NARAYAN Berry with bed locked in lowest position, vss, pt stable, family at bedside
--- NOTE | 2021-12-24 10:28 | HMH.OPNOTE ---
Date of procedure: 12/24/21 Pre-op Diagnosis:: 1. Laceration, right knee 2. Traumatic arthrotomy, right knee Post-op Diagnosis:: Same Procedure performed:: 1. Wound exploration, debridement and closure, right knee 2. Arthroscopic washout, right knee Surgeon:: Malcolm eHrnandez MD MANAGER QUALITY IMPROVEMENT:: Other (Wilfrid Rosenberg) Anesthesia: LMA Estimated blood loss (mL): 5 Clinical Note:: Patient is a 31-year-old male who presented to the ER at [facility] last night following an injury to the medial aspect of his right knee, prior to arrival.? Patient reports that he was cutting some wood with a hatchet which slipped and hit the medial aspect of his right knee. Following evaluation in the ER including x-rays and CT scan, patient was admitted to hospital for management of traumatic arthrotomy of the right knee. He denies any other injuries or pain elsewhere.? Patient denies any distal tingling, numbness or weakness.? He sustained a deep laceration to the medial aspect of the right knee. Patient reports that he had tetanus injection within the last 5 years. He has history of drug abuse and hepatitis B and hepatitis C positive. No history of any previous significant knee injuries or surgery.? X-rays and CT scan are showing intra-articular air but are negative for any acute bony injury.? Please refer to my consult note for full details. Operative findings:: As noted in the operative report below. Operative note:: Patient was brought to the operating room and placed supine on the operating table. All the bony prominences were appropriately padded. A general anesthesia was administered by the cable assembler and swager.? A well-padded tourniquet cuff was placed over the right upper thigh.? Examination showed a clean looking longitudinal laceration over the medial aspect of the knee measuring about 3 cm x 1 cm in size.? Minimal bleeding noted from the wound.? Examination of the right knee under anesthesia was performed. A small amount of knee effusion was noted. Knee range of motion was 0-140 degrees of flexion. Knee joint is noted to be ligamentously stable. The right lower extremity was then prepped and draped in the usual sterile fashion. A preprocedure timeout was performed as per protocol. Administration of IV antibiotics was confirmed with the cable assembler and swager. The wound was thoroughly irrigated with 3 L of normal saline with gentamicin.? The laceration was explored and it was noted to be going through the medial knee capsule. The capsular opening is about 1.5 cm. No obvious contamination or foreign body material was noted in the wound.? Small amount of clotted blood was expressed out of the knee joint. There was no obvious bone, muscle, tendon or ligament injury.? The wound was again thoroughly irrigated with normal saline. The capsular opening was then repaired with [id number] interrupted 0 Vicryl sutures.? I then decided to proceed with arthroscopic washout of the right knee. The limb was exsanguinated with Esmarch bandage and the tourniquet was inflated to 300 mmHg-please see the nursing notes for total tourniquet time.? I then made an anterolateral arthroscopic portal and introduced the arthroscope and performed the knee examination. I then created a superolateral portal under direct vision and inserted a drainage cannula.? Arthroscopic findings included a small amount of intra-articular blood clots.? The articular surfaces, menisci and anterior cruciate ligament were all noted to be intact.? No intra-articular foreign bodies were noted.? Apart from the laceration extending through the medial capsule, there is no evidence of any other intra-articular knee injury.? No loose bodies were noted.? I then created an anteromedial portal under direct vision and the blood clots were evacuated with arthroscopic shaver. The knee joint was washed out with a total of 6 L of irrigation fluid.? Following this the knee joint was emptied by suctioning of the fluid.? The arthroscope and suc
--- NOTE | 2021-12-24 18:16 | PC.NURSE ---
Patient complains of pain to right knee after surgery, morphine given as well as toradol in between. Zofran given for nausea, no vomiting noted. VS stable and patient alert and oriented post procedure.
[2021-12-25] VITALS: BP 122/65; PULSE 80; RESP 16; TEMP 36.8; O2SAT 97
[2021-12-25 04:00] VITALS: BP 125/63; PULSE 59; RESP 16; TEMP 36.4; O2SAT 96; BMI 21.9
--- NOTE | 2021-12-25 06:41 | PC.NURSE ---
Pt reported that pain was severe this am. Pt was given tordal and was effective. Pt was sleeping in the bed with his female partner. Believed that his pain was related to the fact that they were crunched up in the bed together. Once she left the bed. Pt was comfortable and slept the rest of the night without requesting pain medication. Dressing intact and no drainage noted to the area. Pt elevates on pillows and refused ice pack when offered. appears to be comfortable at this time.
[2021-12-25 07:58] VITALS: BP 127/77; PULSE 84; RESP 17; TEMP 36.9; O2SAT 100
[2021-12-25 08:00] VITALS: O2SAT 100
--- NOTE | 2021-12-25 10:08 | HMH.DCSUM ---
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 Patient reports that he was cutting wood with a machete which slipped and hit the medial aspect of his right knee. Following evaluation in the ER including x-rays and CT scan, patient was admitted to the hospital for management of traumatic arthrotomy of the right knee. He denies any other injuries or pain elsewhere.? Patient denies any distal tingling, numbness or weakness.? He sustained a deep laceration to the medial aspect of the right knee. Patient reports that he had tetanus injection within the last 5 years. He has history of drug abuse and hepatitis B and hepatitis C positive. No history of any previous significant knee injuries or surgery.? X-rays and CT scan are showing intra-articular air but are negative for any acute bony injury.? Hospital Course Hospital Course: Following an uneventful wound exploration, debridement, and closure, and arthroscopic washout of the right knee, the patient was admitted to the inpatient service for observation and continued IV antibiotics and has progressed well. He was advised to ambulate weightbearing as tolerated on the right side. The patient has managed this very well. His pain is well controlled with oral pain medication. He is eating and drinking well without any difficulty. The patient is medically stable at the time of discharge and was cleared for discharge by Dr. Hernandez. The surgical dressings present over the right knee are clean, dry, and intact. No evidence of drainage or bleeding noted. Distal neurovascular status is intact; no clinical evidence of DVT noted. The patient's vital signs have been stable throughout his admission and he is afebrile at the time of discharge. He is being discharged to his home. Objective Vital signs: Temp Pulse Resp BP Pulse Ox 98.5 F 84 17 127/77 100 12/25/21 07:58 12/25/21 07:58 12/25/21 07:58 12/25/21 07:58 12/25/21 07:58 no acute distress, cooperative - *Routine HEENT Exam Head: Present: normocephalic, atraumatic Eye: Present: EOMI, PERRL ENT: Present: mucous membranes moist - *Routine Neck Exam Present: supple, full ROM, trachea midline. Absent: JVD, lymphadenopathy - *Routine Respiratory Exam Absent: accessory muscle use, respiratory distress Comments: Symmetric chest movement, able to speak in complete sentences - *Routine Cardiovascular Exam Present: RRR Comments: Normal peripheral pulses - *Routine Abdominal Exam Present: soft. Absent: tenderness - *Routine Rectal Exam Patient deferred: visual exam - *Routine Exam Patient deferred: penile exam - *Routine Extremities Exam Present: pulses intact, normal capillary refill Comments: Upon examination of the right knee: Dressings present over the right knee are clean, dry, and intact. No evidence of drainage or bleeding noted. Attempted movements of the right knee are somewhat painful. Thigh and calf are soft and nontender; Homans' sign is negative. No clinical evidence of DVT noted. Posterior tibial pulse 2+; capillary refill is brisk. Sensation to light touch is grossly intact throughout. Patient is actively mobilizing the foot, ankle, and toes. - *Routine Skin Exam Present: intact, warm, normal turgor. Absent: cyanosis, erythema, lesions, jaundice - *Routine Neurological Exam Present: alert, oriented X3, CN II-XII intact, moving all extremities, normal tone, normal speech. Absent: sensory deficit, motor deficit, altered mental status - Routine Psychiatric Exam Present: normal affect, cooperative Results Labs on day of discharge: Preliminary micro results at discharge 12/24/21 09:06 Wound Culture - Preliminary Knee,Right - Wound NO
[2021-12-25 10:56] VITALS: BP 123/60; PULSE 87; TEMP 36.8
--- NOTE | 2021-12-25 10:56 | HMH.ANESII ---
[facility] Anesthesia Record Part II Discharge Time: 09:50 Destination: Second Floor PACU nurse assessment reviewed?: Yes Patient Condition:: Good Anesthesia Complications:: None Swallowing reflex intact?: Yes Cyanosis?: No Blood Pressure: 123/60 Pulse Rate: 87 Temperature: 98.2 F Mental Status: Alert & Oriented Pain level:: 0 Nausea and/or vomitting:: None Intake, IV Amount: 0
--- NOTE | 2021-12-25 11:35 | HMH.PTEV ---
Physical Therapy Evaluation Rehab PT IP Evaluation Start: 12/24/21 09:57 Freq: ONCE Status: Active Protocol: Document 12/25/21 11:32 PHORKEISHA (Rec: 12/25/21 11:35 PHORNE [id number]) Subjective/History History History 31 yowm adm to [facility] with traumatic laceration to R knee now S/P R knee arthroscopic washout. He is generally independent with all mobility prior to adm. Subjective Subjective Pt c/o pain in the R knee, worse with WBing. Rehab PT IP Eval Objective Appearance Patient Behavior Appropriate Patient Orientation Person,Place,Time Difficulty following instructions none Speech Pattern Clear Ambulation Patient Able to Ambulate Yes Ambulation Observation IP General Gait Pattern Observation Antalgic Gait Ambulation Distance (feet) 30 Ambulation Assistive Device Axillary Crutches Ambulation Ability Independent Balance Ability to Arise Able, w/o using arms Sitting Balance Steady, safe Standing Balance Narrow stance w/o support Dynamic Sitting Balance Ability Normal Dynamic Standing Balance Ability Good Transfers Bed Transfer Ability Independent Chair Transfer Ability Independent Sit to Stand Bed Transfer Ability Independent Sit to Stand Chair Transfer Ability Independent Rehab PT IP prob,goals,plan Problems Date of Evaluation: 12/25/21 Discharge Plan PT Discharge Plan Pt given crutches and instructed in their use for home. He is appropriate to return home once medically stable. G -code Required No Eval Complexity Eval Charge Codes 37728 - Moderate Complexity PHYSICIAN CERTIFICATION: I certify the specified therapy services for José Miguel Bernabe are required, authorized, and reviewed every 30 days.
--- NOTE | 2021-12-25 11:45 | PC.NURSE ---
physical therapy елена went and got crutches for mr. donohue he brought forms and told to print a face sheet and i would more than likely need a drs order so i notified the nurse over the patient which was divya
[2021-12-25 12:00] VITALS: BP 131/86; PULSE 73; RESP 18; TEMP 36.6; O2SAT 99
--- NOTE | 2021-12-25 14:26 | HMH.PHAINT ---
DISCHARGE MEDICATION COUNSELING PROVIDED. DISCUSSED THE SHORT COURSE CEPHALEXIN AND IBUPROFEN. COUNSELED TO TAKE WITH FOOD (MAY HELP WITH GI UPSET) AND HOW TO TAKE (Q12H FOR CEPHALEXIN AND Q8HP FOR IBUPROFEN). PATIENT WAS UPSET THAT HE WAS ONLY BEING SENT HOME ON IBUPROFEN AND STATED THAT HE WANTED HIS DISCHARGE PAPERS, TO WHICH I TOLD HIM I WOULD FIND HIS NURSE AND LET THEM KNOW.
--- NOTE | 2021-12-26 08:00 | HMH.ANESI ---
[facility] Anesthesia Record Part I Intake, IV Amount: 700 Estimated blood loss (mL): 20 Urine output (mL): 0 Blood Products used (#): none Blood Pressure: 123/67 SaO2: 97 Pulse Rate: 59 Respiratory Rate: 10 Temperature: 97.0 F Patient is:: Drowsy Stable to PACU at:: 09:20
[2021-12-26 08:02] VITALS: BP 123/67; PULSE 59; RESP 10; TEMP 36.1; O2SAT 97
--- NOTE | 2021-12-26 13:57 | CARE MANAGER ---
Spoke with patient on the phone post-discharge from [facility] [place], patient states he feels fine and has no complaints. Patient repeated post discharge appointment and time. No needs noted at this time.
== END 2021-12-25 14:55 | disposition home or self-care (01) ==
LOC: ER 22:40 → 2ND 12-24 00:38
PROVIDERS: Admitting Provider Orthopaedic Surgery; Emergency Provider Emergency Medicine; Visit Provider Orthopaedic Surgery
PROC: (CPT 29870; principal; 2021-12-24 07:30)
DX: S81.011A Laceration without foreign body, right knee, initial encounter (principal); F17.210 Nicotine dependence, cigarettes, uncomplicated; Z20.822 Contact with and (suspected) exposure to COVID-19; W27.0XXA Contact with workbench tool, initial encounter; Y93.H9 Activity, other involving exterior property and land maintenance, building and construction; Z23 Encounter for immunization; B19.20 Unspecified viral hepatitis C without hepatic coma; B19.10 Unspecified viral hepatitis B without hepatic coma
CPT/HCPCS: 12002; 90471; 96365; 73562; 73700; 80053; 83605; 84145; 85025; 85651; 86140; 87040; 87070; 87075; 87205; 90715; 96375; 97162; 99285; C9803; G0378; J0131; J2405; U0003; U0005

== ENCOUNTER 2022-06-25 08:47 | Emergency (ER) | payer OTHER, SELFPAY ==
[2022-06-25 09:15] VITALS: BP 123/66; PULSE 63; RESP 18; TEMP 37.1; O2SAT 96; BMI 22.3
--- NOTE | 2022-06-25 09:17 | EXP.UTC ---
Discharge Plan Disposition Patient Disposition: Home, Self-Care Condition: Good Prescriptions Prescriptions: New cephalexin 500 mg capsule 500 mg PO QID Qty: 40 0RF mupirocin 2 % ointment 1 applic topical TID 7 Days Qty: 22 0RF Referrals Follow up/Referrals: Provider,Referral, [Primary Care Provider] - See instructions Activity Restrictions/Add. Instructions Additional Instructions/Restrictions: Keep the wound clean and dry. Keep a dressing on it if you are going to be getting it dirty. Watch the for signs of infection, such as redness, swelling, drainage, fever. etc. Givetketylenol or ibuprofen for pain. Follow up with your regular doctor. GO TO THE ER FOR ANY WORSENING SYMPTOMS OR CONCERNS. Clinical Impressions Clinical Impression: Laceration of foot, right Stand Alone Forms Stand Alone Forms: Work/School Release Instructions Patient Instructions: DI for Avulsion Laceration (Not Requiring Sutures) Discharge ED Provider: Titi Haynes [facility] General Stated complaint: AO [id number] 02:00 Right foot pain, back pain, Time Seen by Provider: 06/25/22 09:17 History of Present Illness Provider Complaint: He states that he got out of bed yesterday evening and bumped his right foot on something in the dark. He has a laceration on the bottom of his right 3rd toe. Related Data Previous Rx's Medication Instructions Recorded cephalexin 500 mg capsule 500 mg PO QID #40 caps 06/25/22 mupirocin 2 % topical ointment 1 applic topical TID 7 days #22 06/25/22 grams Allergies Allergy/AdvReac Type Severity Reaction Status Date / Time codeine Allergy Rash Verified 01/10/22 15:53 [facility] Surgical History History of appendectomy History of dental surgery Social History Smoking Status: Current every day smoker tobacco type: cigarettes packs per day: 2 alcohol intake: current substance use type: former substance user, marijuana and heroin current occupational status: employed Travel in the last 8 weeks: None household members: significant other and children housing: house caffeine: Yes ROS Obtained: Yes All systems reviewed & no additional complaints except as documented Constitutional Constitutional: Denies chills and Denies fever(s) Eyes Eyes: Denies eye discharge ENT Ears, Nose, Mouth, and Throat: Denies dizziness, Denies otalgia and Denies sore throat Cardiovascular Cardiovascular: Denies chest pain Respiratory Respiratory: Denies shortness of breath, Denies chest congestion, Denies cough, Denies stridor and Denies wheezing Gastrointestinal Gastrointestingal: Denies nausea or vomiting Musculoskeletal Musculoskeletal: Reports system reviewed and no additional complaints, except as documented and Denies arthralgias Integumentary/Breasts Skin/Breast: Reports as per HPI Neurologic Neurologic: Denies dizziness and Denies paresthesias Allergic/Immunologic Allergic/Immunologic: Denies wheezing Physical Exam General General appearance: alert and in no apparent distress Head Head exam: atraumatic, normocephalic and normal inspection Eye Eye exam: Present normal appearance, PERRL and EOMI ENT ENT exam: Present normal exam, normal oropharynx, mucous membranes moist, TM's normal bilaterally and normal external ear exam Neck Neck exam: Present normal inspection, full ROM and trachea midline; Absent meningismus or lymphadenopathy Chest Chest inspection: Present normal inspection and symmetric chest wall rise; Absent tenderness Respiratory Respiratory exam: Present normal lung sounds bilaterally; Absent respiratory distress Cardiovascular Cardiovascular exam: Present regular rate and normal rhythm; Absent JVD Abdominal Exam Abdominal exam: Present soft and normal bowel sounds; Absent distention, tenderness or guarding Extremities Exam Extremities exam: Prese
[2022-06-25 09:24] LABS: UTC Influenza A Antigen Negative (Negative); UTC Influenza B Antigen Negative (Negative)
[2022-06-25 10:35] VITALS: BP 123/66; PULSE 63; RESP 18; TEMP 37.1; O2SAT 96
== END 2022-06-25 10:46 | disposition home or self-care (01) ==
PROVIDERS: Emergency Provider Nurse Practitioner Family
DX: S91.114A Laceration without foreign body of right lesser toe(s) without damage to nail, initial encounter (principal); F17.210 Nicotine dependence, cigarettes, uncomplicated; Z79.899 Other long term (current) drug therapy; Z88.5 Allergy status to narcotic agent; W22.8XXA Striking against or struck by other objects, initial encounter
CPT/HCPCS: 87804; 99213; G0463

== ENCOUNTER 2022-09-27 18:12 | Emergency (ER) | payer OTHER, SELFPAY ==
--- NOTE | 2022-09-27 18:25 | XR_ITS ---
PROCEDURE INFORMATION: Exam: XR Left Ribs with PA Chest Exam date and time: 09/27/2022 6:29 PM Age: 32 years old Clinical indication: Chest wall pain; Left; Additional info: Fall. Anterior rib pain. TECHNIQUE: Imaging protocol: Radiologic exam of the Left ribs with PA chest. Views: 3 views COMPARISON: CT ABDOMEN PELVIS W CON 02/03/2021 2:21 AM FINDINGS: Lungs: Punctate granuloma in left lower lobe. No evidence of pneumonia or interstitial edema. Pleural spaces: No detectable pneumothorax. Heart/Mediastinum: Unremarkable. No cardiomegaly. Bones/joints: No visible fracture. IMPRESSION: No visible fracture. No detectable pneumothorax.
--- NOTE | 2022-09-27 18:28 | EXP.UTC ---
Discharge Plan Disposition Patient Disposition: Home, Self-Care Condition: Good Prescriptions Prescriptions: New ibuprofen [IBU] 800 mg tablet 800 mg PO Q8HP PRN (Reason: Moderate Pain) Qty: 30 0RF Referrals Follow up/Referrals: Provider,Referral, MD [Primary Care Provider] - See instructions Activity Restrictions/Add. Instructions Additional Instructions/Restrictions: Go home and rest. It would be best if you rested tomorrow too. No heavy lifting and No twisting for the next few days. Take the ibuprofen for pain as directed. The muscle relaxer (cyclobenzaprine--Flexeril) will make you drowsy, so don't drive or operate heavy machinery after taking it. Follow up with your regular doctor. 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 Since then he has had left rib pain that is worse with deep breathing and coughing. Related Data Previous Rx's Medication Instructions Recorded ibuprofen 800 mg tablet (IBU) 800 mg PO Q8HP PRN Moderate Pain 09/27/22 #30 tabs Allergies Allergy/AdvReac Type Severity Reaction Status Date / Time codeine Allergy Rash Verified 09/27/22 18:49 [facility] Disclaimer: The information contained in this section may have been updated after the patient was seen, as this information can be updated by other users. Surgical History History of appendectomy History of dental surgery Family History Other No significant family history Social History Smoking Status: Current every day smoker tobacco type: cigarettes packs per day: 2 alcohol intake: current substance use type: former substance user, marijuana and heroin current occupational status: employed Travel in the last 8 weeks: None household members: significant other and children housing: house caffeine: Yes ROS Obtained: Yes All systems reviewed & no additional complaints except as documented Constitutional Constitutional: Denies chills and Denies fever(s) Eyes Eyes: Denies eye discharge ENT Ears, Nose, Mouth, and Throat: Denies dizziness, Denies otalgia and Denies sore throat Cardiovascular Cardiovascular: Denies chest pain Respiratory Respiratory: Denies shortness of breath, Denies chest congestion, Denies cough, Denies hemoptysis, Denies stridor and Denies wheezing Gastrointestinal Gastrointestingal: Denies nausea or vomiting Musculoskeletal Musculoskeletal: Reports as per HPI Integumentary/Breasts Skin/Breast: Denies rash Neurologic Neurologic: Denies dizziness and Denies paresthesias Allergic/Immunologic Allergic/Immunologic: Denies wheezing Physical Exam General General appearance: alert and in no apparent distress Head Head exam: atraumatic, normocephalic and normal inspection Eye Eye exam: Present normal appearance, PERRL and EOMI ENT ENT exam: Present normal exam, normal oropharynx, mucous membranes moist, TM's normal bilaterally and normal external ear exam Neck Neck exam: Present normal inspection, full ROM and trachea midline; Absent meningismus or lymphadenopathy Chest Chest inspection: Present symmetric chest wall rise and tenderness Respiratory Respiratory exam: Present normal lung sounds bilaterally; Absent respiratory distress Cardiovascular
[2022-09-27 18:35] VITALS: RESP 20; TEMP 36.9; O2SAT 99; BMI 30.2
[2022-09-27 19:32] VITALS: BP 133/68; PULSE 68; RESP 20; TEMP 37.2; O2SAT 98
== END 2022-09-27 19:32 | disposition home or self-care (01) ==
LOC: ER 18:18 → UTC 18:20
PROVIDERS: Emergency Provider Nurse Practitioner Family
DX: S20.212A Contusion of left front wall of thorax, initial encounter (principal)
CPT/HCPCS: 71101; 99212; G0463

== ENCOUNTER 2023-05-06 12:30 | Emergency (ER) | payer OTHER, SELFPAY ==
[2023-05-06 12:45] VITALS: BP 129/71; PULSE 64; RESP 17; TEMP 36.6; O2SAT 98; BMI 19.3
--- NOTE | 2023-05-06 13:15 | XR_ITS ---
FINAL REPORT CLINICAL HISTORY: LT RIB PAIN AFTER WRESTLING COMPARISON: 09/27/2022 FINDINGS: 3 views of the left ribs were obtained. There is no displaced, acute fracture identified. The visualized lungs are clear. No pneumothorax is identified. IMPRESSION: No displaced rib fracture or pneumothorax identified. Reviewed, Interpreted and Dictated by David Bergeron III, MD Transcribed by Adelaide Cary Authenticated and [facility]
--- NOTE | 2023-05-06 13:15 | EXP.UTC ---
Discharge Plan Disposition Patient Disposition: Home, Self-Care Condition: Good Prescriptions Prescriptions: New ibuprofen 600 mg tablet 600 mg PO Q6HP PRN (Reason: Moderate Pain) Qty: 20 0RF No Action Vraylar 1.5 mg capsule 1.5 mg PO DAILY Patient Comments: TAKE 1 CAPSULE BY MOUTH ONCE DAILY Referrals Follow up/Referrals: Provider,Referral, [Primary Care Provider] - See instructions Activity Restrictions/Add. Instructions Additional Instructions/Restrictions: Ibuprofen as prescribed for pain Biofreeze and other muscle rubs may help with muscle pain Follow up with your Family Doctor if symptoms persist or worsen Return if needed Straight to ER if any life threatening symptoms Clinical Impressions Clinical Impression: Pain in rib Instructions Patient Instructions: Ibuprofen, Muscle Strain Discharge ED Provider: Diana Chiang [facility] General Stated complaint: Lt shoulder/ back pain Mode of Arrival: Ambulatory Source of Information: Patient Limitations: No Limitations Time Seen by Provider: 05/06/23 13:15 Description of Symptoms (Recalled from Triage Doc. by RN): PATIENT C/O PAIN TO LEFT CHEST AND BACK AND NUMBNESS TO FINGER TIPS X 2 DAYS. HE STATES IT STARTED AFTER WRESTLING HEENT Symptoms (Recalled from RN notes): No Resp Symptoms (Recalled from RN notes): No Skin Symptoms (Recalled from RN notes): No MS Symptoms (Recalled from RN notes): Yes Functional Status (Recalled from RN notes): WNL History of Present Illness Provider Complaint: Patient states that he was wrestling with his a couple days ago and went to give her a bearhug and felt something pop in his left upper ribs States that since then he has been having pain in his ribs just below his collar bone when he moves or takes a deep breath States marizol the wasnt sure if he may have just pulled something or broke a rib Denies chest pain but states that feels like he may have pulled a muscle in the back of his left shoulder too it hurts when he tries to raise up his left arm Related Data Home Medications Medication Instructions Recorded Confirmed cariprazine 1.5 mg capsule 1.5 mg PO DAILY BIPOLAR 05/06/23 05/06/23 (Vraylar) Previous Rx's Medication Instructions Recorded ibuprofen 600 mg tablet 600 mg PO Q6HP PRN Moderate Pain 05/06/23 #20 tabs Allergies Allergy/AdvReac Type Severity Reaction Status Date / Time codeine Allergy Rash Verified 04/16/23 16:46 Worker's Comp Is this a Worker's Comp case?: No [facility] Disclaimer: The information contained in this section may have been updated after the patient was seen, as this information can be updated by other users. Medical History (Updated 05/06/23 @ 14:41 by Diana Chiang APRN) Bipolar I disorder Heroin use disorder, severe, in sustained remission Surgical History (Updated 04/16/23 @ 14:48 by Rosalina Del Real APRN) History of appendectomy History of dental surgery History of knee surgery Family History Other No significant family history Social History (Updated 04/16/23 @ 14:47 by Rosalina Del Real APRN) Smoking Status: Current every day smoker tobacco type: cigarettes packs per day: 2 second hand exposure: Yes alcohol intake: current counseling given: No substance use type: former substance user, marijuana, heroin, IV drugs and methamphetamine counseling given: No (he has been clean from everything except 3 months; see above) current occupational status: employed Travel in the last 8 weeks: None adopted: No caregiver/support person: Yes (his and son) household members: significant other and children housing: house lives independently: Yes marital status: single number of children: 3 number of grandchildren: 0 education level: other details: he completed the 11th grade; never got GED current occupation: [employer] Hx Recent Tra
[2023-05-06 14:40] VITALS: BP 129/71; PULSE 64; RESP 17; TEMP 36.6; O2SAT 98
== END 2023-05-06 14:42 | disposition home or self-care (01) ==
PROVIDERS: Emergency Provider Nurse Practitioner
DX: R07.81 Pleurodynia (principal); F31.9 Bipolar disorder, unspecified; F17.210 Nicotine dependence, cigarettes, uncomplicated; F11.11 Opioid abuse, in remission
CPT/HCPCS: 71101; 99212; 99214; G0463

== ENCOUNTER 2023-11-01 13:46 | Outpatient (CLI) | payer OTHER, SELFPAY ==
[2023-11-01 14:40] LABS: Basophils % 0.4 % (0.1-2.0); Eosinophils # 0.1 K/mm3 (0.0-0.4); Hematocrit 47.7 % (42.0-52.0); Hemoglobin 15.5 g/dL (14.1-18.0); Lymphocytes # 0.8 K/mm3 (0.7-4.5); Lymphocytes % 11.2 % (10-50); Mean Corpuscular HGB Conc 32.4 g/dL (31.8-35.4); Mean Corpuscular Hemoglobin 32.2 pg (27.0-31.2); Mean Corpuscular Volume 99.2 fl (80-94); Mean Platelet Volume 7.9 fl (7.4-10.4); Monocytes # 0.4 K/mm3 (0.1-1.0); Monocytes % 6.2 % (1.7-9.3); Neutrophils # 5.7 K/mm3 (1.8-7.8); Neutrophils % 81.1 % (37.0-80.0); Platelet Count 264 K/mm3 (142-424); Red Blood Count 4.81 M/mm3 (4.60-6.20); Red Cell Distribution Width 13.3 % (11.5-17.5)
[2023-11-01 15:18] LABS: Alanine Aminotransferase 34 U/L (12-78); Albumin Level 4.2 g/dl (3.5-5.0); Albumin/Globulin Ratio 1.7 (1.1-1.8); Alkaline Phosphatase 81 U/L (38-126); Anion Gap 9.4 mEq/L (5-15); Aspartate Amino Transferase 32 U/L (17-59); Bilirubin,Total 0.4 mg/dl (0.2-1.3); Blood Urea Nitrogen 7 mg/dl (9-20); Calcium 9.5 mg/dl (8.4-10.2); Carbon Dioxide 28 mmol/L (22.0-30.0); Chloride 105 mmol/L (98-107); Chol/HDL Ratio 3.7 (1-3.5); Cholesterol 161 mg/dl (140-200); Estimated Glomerular Filt Rate 113 ml/min (>60); GFR (African American) 136 ML/MIN (>60); Globulin 2.5 g/dL (1.3-3.2); Glucose 72 mg/dl (74-100); HDL Cholesterol 44 mg/dl (40-60); Potassium 4.4 mmoL/L (3.5-5.1); Sodium 138 mmol/L (136-145); Total Protein,Serum 6.7 g/dl (6.3-8.2); Triglycerides 111 mg/dl (30-150); VLDL Cholesterol 22 mg/dL (0-40)
[2023-11-01 15:30] LABS: C-Reactive Protein 0.9 mg/L (0-4); Direct LDL Cholesterol 91.96 mg/dL (100-129)
[2023-11-01 15:36] LABS: 25-OH Vitamin D, Total 35.9 ng/mL (30-100)
[2023-11-01 16:08] LABS: Vitamin B12 317 pg/mL (239-931)
[2023-11-01 16:16] LABS: Erythrocyte Sedimentation Rate 6 mm/hr (0-15)
[2023-11-02 15:50] LABS: Anti-Cyclic Citrullinated Pept 0 units (0-19)
[2023-11-02 15:51] LABS: RA Latex Turbid. 10.2 IU/mL (<14.0)
[2023-11-04 12:25] LABS: Anti-Centromere B Antibodies <0.2 AI (0.0-0.9); Anti-DNA (DS) Ab Qn 1 IU/mL (0-9); Anti-Jo-1 <0.2 AI (0.0-0.9); Anti-Smith Antibody <0.2 AI (0.0-0.9); Antichromatin Antibodies <0.2 AI (0.0-0.9); Antiscleroderma-70 Antibodies <0.2 AI (0.0-0.9); RNP Antibodies 0.2 AI (0.0-0.9); Sjogren's Anti-SS-A <0.2 AI (0.0-0.9); Sjogren's Anti-SS-B <0.2 AI (0.0-0.9)
== END 2023-11-01 23:59 ==
LOC: LAB 13:46
PROVIDERS: PCP Physician Assistant; Visit Provider Physician Assistant
DX: R20.0 Anesthesia of skin (principal); R20.2 Paresthesia of skin; M54.2 Cervicalgia; R06.09 Other forms of dyspnea
CPT/HCPCS: 36415; 80053; 80061; 82306; 82607; 84443; 85025; 85651; 86140; 86200; 86225; 86235; 86431

== ENCOUNTER 2024-02-24 16:11 | Emergency (ER) | payer SELFPAY ==
[2024-02-24 16:15] VITALS: BP 124/79; PULSE 51; RESP 18; TEMP 36.6; O2SAT 100; BMI 21.4
--- NOTE | 2024-02-24 17:02 | HMH.EDGENADL ---
Discharge Plan Disposition Patient Disposition: Home, Self-Care Condition: Good Prescriptions Prescriptions: New ibuprofen 800 mg tablet 800 mg PO TID PRN (Reason: pain) Qty: 30 0RF amoxicillin-pot clavulanate 875-125 mg tablet 1 tab PO Q12H 10 Days Qty: 20 0RF Referrals Follow up/Referrals: Grisel Loving PA [Primary Care Provider] - See instructions Activity Restrictions/Add. Instructions Additional Instructions/Restrictions: Take medication as prescribed. Increase fluids and rest. Follow up with dentist for tooth extraction. Clinical Impressions Clinical Impression: Dental abscess Instructions Patient Instructions: DI for Dental Pain, DI for Tooth Decay, Tooth Abscess Discharge ED Provider: Chanelle Solomon General Adult HPI General Chief complaint: Dental/Oral Stated complaint: left eye swelling Time Seen by Provider: 02/24/24 16:57 Mode of Arrival: Ambulatory Source of Information: Patient Limitations: No Limitations Description of Symptoms (Recalled from ER Triage Doc. by RN): PATIENT C/O SWELLING AND PAIN TO LEFT SIDE OF FACE THAT STARTED YESTERDAY. PATIENT STATES HE DOES HAVE BAD TEETH History of Present Illness HPI narrative: Pt reports pain and swelling of the left side of face that started yesterday. He reports that he has has several teeth removed and has some teeth that still need to be removed. He states that he has taken Tylenol for his symptoms. Related Data Previous Rx's Medication Instructions Recorded amoxicillin 875 mg-potassium 1 tab PO Q12H 10 days #20 tabs 02/24/24 clavulanate 125 mg tablet ibuprofen 800 mg tablet 800 mg PO TID PRN pain #30 tabs 02/24/24 Allergies Allergy/AdvReac Type Severity Reaction Status Date / Time codeine Allergy Rash Verified 10/29/23 14:56 [facility] Disclaimer: The information contained in this section may have been updated after the patient was seen, as this information can be updated by other users. Medical History (Updated 02/24/24 @ 17:05 by Chanelle Solomon APRN) Cocaine use Heroin use disorder, severe, in sustained remission Bipolar I disorder Surgical History History of knee surgery History of dental surgery History of appendectomy Family History Other No significant family history Social History (Updated 10/29/23 @ 15:00 by Lianne Raymond MA) Smoking Status: Current every day smoker tobacco type: cigarettes packs per day: 2 second hand exposure: Yes alcohol intake: former counseling given: No substance use type: former substance user counseling given: No (he has been clean from everything except 3 months; see above) current occupational status: employed Travel in the last 8 weeks: None adopted: No caregiver/support person: Yes (his and son) household members: significant other and children housing: house lives independently: Yes marital status: single number of children: 4 number of grandchildren: 0 education level: other details: he completed the 11th grade; never got GED current occupation: [employer] Recent Travel: No sexually active: Yes caffeine: Yes physical activity: none maryjane/druze: None special maryjane needs: No working smoke detector in home: Yes fire extinguisher in home: Yes carbon monox detector in home: Yes firearms in home: No do you feel safe at home: Yes victim of physical abuse: No victim of emotional abuse: No victim of sexual abuse: No would you like helpful sources: No ROS Obtained: Yes All systems reviewed & no additional complaints except as documented Constitutional Constitutional: Reports system reviewed and no additional complaints, except as documented and Reports malaise Eyes Eyes: Reports system reviewed and no additional complaints, except as documented ENT Ears, Nose, Mouth, and Throat: Reports system reviewed and no additional complaints, except as documented and Reports dental pain Comments: facial swelling Cardiovascular Cardiovascular: Reports system reviewed and no additional complaints, except as documented Respiratory Respiratory: Reports system reviewed and no additional complaints, except as documented Gastrointestinal Gastrointestingal: Reports system reviewed and no additional complaints, except as documented Genitourinary Male Genitourinary: Reports system reviewed and no additional complaints, except as documented Musculoskeletal Musculoskeletal: Reports system reviewed and no additional complaints, except as documented Integumentary/Breasts Skin/Breast: Reports system reviewed and no additional complaints, except as documented Neurologic Neurologic: Reports system reviewed and no additional complaints, except as documented Endocrine Endocrine: Reports system reviewed and no additional complaints, except as documented Hematologic/Lymphatic Henatologic/Lymphatic: Reports system reviewed and no additional complaints, except as documented Allergic/Immunologic Allergic/Immunologic: Reports system reviewed and no additional complaints, except as documented Physical Exam General General appearance: alert Comment: appears in pain Head Head exam: atraumatic and normocephalic Eye Eye exam: Present periorbital swelling and periorbital tenderness ENT ENT exam: Present mucous membranes moist Expanded ENT Exam External ear exam: Present normal external inspection Nose exam: Present sinus tenderness (left maxillary) Nasal speculum exam: Bilateral: normal Teeth exam: Present dental caries and dental tenderness # Comment: #13,14,15 Neck Neck exam: Present normal inspection and full ROM Chest Chest inspection: Present normal inspection and symmetric chest wall rise Respiratory Respiratory exam: Present normal lung sounds bilaterally Cardiovascular Cardiovascular exam: Present regular rate, normal rhythm and normal heart sounds Abdominal Exam Abdominal exam: Present normal bowel sounds Extremities Exam Extremities exam: Present normal inspection Back Exam Back exam: Present normal inspection Neurological Exam Neurological exam: Present alert and oriented X3 Psychiatric Psychiatric exam: Present normal affect and normal mood Skin Skin exam: Present warm, dry and intact Lymphatic Lymphatic Findings: no adenopathy Medical Decision Making Sukhi Inquiry Pt receiving controlled substance: No Sukhi was queried for this patient: No Vital Signs: 02/24/24 16:15 Temperature 97.9 F Temperature Source Oral Pulse Rate [Left Brachial] 51 L Respiratory Rate 18 Blood Pressure [Left Arm] 124/79 Blood Pressure Mean [Left Arm] 94 Blood Pressure Source [Left Arm] Automatic Cuff Blood Pressure Position [Left Arm] Sitting 02 Sat by Pulse Oximetry 100 Oxygen Delivery Method Room Air Critical Care Critical Care Time Critical Care Time: No
[2024-02-24 17:06] VITALS: BP 124/79; PULSE 51; RESP 18; TEMP 36.6; O2SAT 100
== END 2024-02-24 17:09 | disposition home or self-care (01) ==
PROVIDERS: Emergency Provider Nurse Practitioner Family; PCP Physician Assistant
DX: K04.7 Periapical abscess without sinus (principal)
CPT/HCPCS: 99212; 99214; G0463

== ENCOUNTER 2024-09-15 14:48 | Emergency (ER) | payer OTHER, SELFPAY ==
--- NOTE | 2024-09-15 14:53 | XR_ITS ---
PROCEDURE INFORMATION: Exam: XR Chest Exam date and time: 09/15/2024 2:54 PM Age: 34 years old Clinical indication: Chest wall pain; Additional info: Pulled muscle TECHNIQUE: Imaging protocol: Radiologic exam of the chest. Views: 2 views. COMPARISON: CR XR RIBS LT MIN 3V W CXR1V 05/06/2023 1:11 PM FINDINGS: Lungs: There is a stable old calcified granuloma of the left lung base. Lungs are otherwise clear. Pleural spaces: Unremarkable. No pleural effusion. No pneumothorax. Heart/Mediastinum: Unremarkable. No cardiomegaly. Bones/joints: Unremarkable. IMPRESSION: No radiographic evidence of acute cardiopulmonary disease.
[2024-09-15 15:05] VITALS: BP 145/95; PULSE 100; RESP 18; TEMP 36.6; O2SAT 99; BMI 22.0
--- NOTE | 2024-09-15 15:13 | EXP.UTC ---
Discharge Plan Disposition Patient Disposition: Home, Self-Care Condition: Good Prescriptions Prescriptions: New ibuprofen 600 mg tablet 600 mg PO Q6HP PRN (Reason: Mild Pain) Qty: 30 0RF Referrals Follow up/Referrals: Grisel Loving PA [Primary Care Provider] - See instructions Activity Restrictions/Add. Instructions Additional Instructions/Restrictions: Go home and rest. It would be best if you rested tomorrow too. No heavy lifting & No twisting for the next few days. Take the oral medications as directed. Follow up with your regular doctor. GO TO THE ER FOR ANY WORSENING SYMPTOMS OR CONCERN, ESPECIALLY BOWEL OR BLADDER ISSUES, SADDLE AREA NUMBNESS, FEVER, ETC Clinical Impressions Clinical Impression: Chest wall pain Stand Alone Forms Stand Alone Forms: Work/School Release Instructions Patient Instructions: Costochondritis, DI for Costochondritis Print Language Print Language: Swedish Discharge ED Provider: Titi Haynes [facility] General Stated complaint: shoulder pain Mode of Arrival: Ambulatory Source of Information: Patient Time Seen by Provider: 09/15/24 15:13 Description of Symptoms (Recalled from Triage Doc. by RN): PAIN IN UPPER CHEST HEENT Symptoms (Recalled from RN notes): No Resp Symptoms (Recalled from RN notes): No Skin Symptoms (Recalled from RN notes): Yes MS Symptoms (Recalled from RN notes): Yes Functional Status (Recalled from RN notes): WNL History of Present Illness Provider Complaint: He states that he has been having right upper chest tenderness and pain with movement for the past several days. He denies any known injury, but he has been chopping wood and carrying a lot of fire wood recently. He has had costochondritis in the past and that is what he feels like he is having now. He denies any other chest pain. He denies shortness of breath, cough and congestion. Related Data Previous Rx's ?Medication ?Instructions ?Recorded ibuprofen 600 mg tablet 600 mg PO Q6HP PRN Mild Pain #30 09/15/24 tabs Allergies Allergy/AdvReac Type Severity Reaction Status Date / Time codeine Allergy Rash Verified 10/29/23 14:56 Worker's Comp Is this a Worker's Comp case?: No [facility] Disclaimer: The information contained in this section may have been updated after the patient was seen, as this information can be updated by other users. Medical History (Updated 09/15/24 @ 15:42 by Titi Haynes APRN) Cocaine use Heroin use disorder, severe, in sustained remission Bipolar I disorder Surgical History History of knee surgery History of dental surgery History of appendectomy Family History Other No significant family history Social History (Updated 10/29/23 @ 15:00 by Lianne Raymond MA) Smoking Status: Current every day smoker tobacco type: cigarettes packs per day: 2 second hand exposure: Yes alcohol intake: former counseling given: No substance use type: former substance user counseling given: No (he has been clean from everything except 3 months; see above) current occupational status: employed Travel in the last 8 weeks: None adopted: No caregiver/support person: Yes (his and son) household members: significant other and children housing: house lives independently: Yes marital status: single number of children: 4 number of grandchildren: 0 education level: other details: he completed the 11th grade; never got GED current occupation: [employer] Recent Travel: No sexually active: Yes caffeine: Yes physical activity: none maryjane/spiritism: None special maryjane needs: No working smoke detector in home: Yes fire extinguisher in home: Yes carbon monox detector in home: Yes firearms in home: No do you feel safe at home: Yes victim of physical abuse: No victim of emotional abuse: No victim of sexual abuse: No would you like helpful sources: No Have you lived/traveled outside [place] in past 30 days?: No Contact w/someone who lives/traveled outside US past 30 days?: No Exposure to someone with infectious disease in past 14 days?: No Do you have a fever (greater than 100.4 F or 38 C)?: No Have you tested positive for COVID-19: No Exposed to someone with COVID-19 in past 14 days?: No Do you have a sore throat?: No Do you have a cough?: No Do you have any weakness?: No Do you have any diarrhea?: No Are you experiencing any unusual bleeding?: No Do you have any muscle aches/pain?: No Do you have any abdominal pain?: No Are you experiencing loss of taste or smell?: No ROS Obtained: Yes All systems reviewed & no additional complaints except as documented Constitutional Constitutional: Denies chills and Denies fever(s) Eyes Eyes: Denies eye discharge ENT Ears, Nose, Mouth, and Throat: Denies dizziness, Denies otalgia and Denies sore throat Cardiovascular Cardiovascular: Reports as per HPI, Denies chest pain, Denies dyspnea and Reports other (there is tenderness when his right upper chest is palpated) Respiratory Respiratory: Denies shortness of breath, Denies chest congestion, Denies cough, Denies dyspnea, Denies stridor and Denies wheezing Gastrointestinal Gastrointestingal: Denies nausea or vomiting Musculoskeletal Musculoskeletal: Reports system reviewed and no additional complaints, except as documented and Denies arthralgias Integumentary/Breasts Skin/Breast: Denies rash Neurologic Neurologic: Denies dizziness and Denies paresthesias Allergic/Immunologic Allergic/Immunologic: Denies wheezing Physical Exam General General appearance: alert and in no apparent distress Head Head exam: atraumatic, normocephalic and normal inspection Eye Eye exam: Present normal appearance, PERRL and EOMI ENT ENT exam: Present normal exam, normal oropharynx, mucous membranes moist, TM's normal bilaterally and normal external ear exam Neck Neck exam: Present normal inspection, full ROM and trachea midline; Absent meningismus or lymphadenopathy Chest Chest inspection: Present symmetric chest wall rise and tenderness Respiratory Respiratory exam: Present normal lung sounds bilaterally; Absent respiratory distress Cardiovascular Cardiovascular exam: Present regular rate and normal rhythm; Absent JVD Abdominal Exam Abdominal exam: Present soft and normal bowel sounds; Absent distention, tenderness or guarding Extremities Exam Extremities exam: Present normal inspection, full ROM and normal capillary refill; Absent calf tenderness Back Exam Back exam: Present normal inspection; Absent tenderness Neurological Exam Neurological exam: Present alert and oriented X3 Psychiatric Psychiatric exam: Present normal affect and normal mood Skin Skin exam: Present warm, dry, intact and normal color Lymphatic Lymphatic Findings: no adenopathy Medical Decision Making Medical Records Medical records reviewed: No I reviewed the patient's medical records. Screening: Per USPSTF and CDC recommendations, given the prevalence of disease in our region, it is our hospital?s policy to screen for HIV and viral Hepatitis for all patients aged 18 and over and those with ongoing risk factors. Sukhi Inquiry Pt receiving controlled substance: No Vital Signs: 09/15/24 15:05 Temperature 97.9 F Temperature Source Oral Pulse Rate [Left Radial] 100 H Respiratory Rate 18 Blood Pressure [Left Arm] 145/95 H Blood Pressure Mean [Left Arm] 111 02 Sat by Pulse Oximetry 99 Orders (Tests/Meds): ORDERS Category Date Time Status Chest XR 2 view (NOT portable) [XR chest 2V] Stat Exams 09/15/24 14:53 Taken Radiology Data #1: Image(s): Chest Image Reviewed: Yes I reviewed the patient's radiology image and Yes I have reviewed radiologist's interpretation Preliminary Findings: No Fracture Seen and No Infiltrates Seen Accession No. : [id number] Patient Name / ID : Florecita Benton / [id number] Exam Date : 09/15/2024 14:54:05 ( Final ) Study Comment : Sex / Age : M / 34Y Creator : BRIAN ALBERT MD Dictator : Infection Preventionist : Painter Decorator : BRIAN ALBERT MD Approver2 : Report Date : 09/15/2024 15:28:11 My Comment : PROCEDURE INFORMATION: Exam: XR Chest Exam date and time: 09/15/2024 2:54 PM Age: 34 years old Clinical indication: Chest wall pain; Additional info: Pulled muscle TECHNIQUE: Imaging protocol: Radiologic exam of the chest. Views: 2 views. COMPARISON: CR XR RIBS LT MIN 3V W CXR1V 05/06/2023 1:11 PM FINDINGS: Lungs: There is a stable old calcified granuloma of the left lung base. Lungs are otherwise clear. Pleural spaces: Unremarkable. No pleural effusion. No pneumothorax. Heart/Mediastinum: Unremarkable. No cardiomegaly. Bones/joints: Unremarkable. IMPRESSION: No radiographic evidence of acute cardiopulmonary disease.
[2024-09-15] MEDS: KETOROLAC 60MG/2ML VIAL 60 MG IM (15:27)
[2024-09-15 16:00] VITALS: BP 145/95; PULSE 100; RESP 18; TEMP 36.6
== END 2024-09-15 16:03 | disposition home or self-care (01) ==
PROVIDERS: Emergency Provider Nurse Practitioner Family; PCP Physician Assistant
DX: R07.89 Other chest pain (principal)
CPT/HCPCS: 71046; 99213; G0381; J1885

== ENCOUNTER 2025-02-19 13:55 | Emergency (ER) | payer OTHER, SELFPAY ==
[2025-02-19 14:04] VITALS: PULSE 93; RESP 17; O2SAT 96
[2025-02-19 14:05] VITALS: BP 118/83; PULSE 91; RESP 17; TEMP 37.1; O2SAT 98; BMI 23.3
--- OUTSIDE RECORDS SUMMARY | 2025-02-19 14:09 | XMS_ITS | Clinical Summary ---
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 Name Role Phone Unavailable Primary Care Provider Unavailabl e Allergies No known active allergies Medications No known medications Family History Medical History Relation Name Comments Conversions - Other Father's Sister alana becerril neoplasm of ovary Relation Name Status Comments Father's Sister Social History Tobacco Use Types Packs/Day Years Used Date Smoking Tobacco: Every Day Cigarettes Smokeless Tobacco: Never Alcohol Use Standard Drinks/Week Comments No 0 (1 standard drink = 0.6 oz pur e alcohol) Sex and Gender Information Value Date Recorded Sex Assigned at Not on file Legal Sex Male 7:47 PM EDT Gender Identity Not on file Sexual Orientation Not on file Last Filed Vital Signs Vital Sign Reading Time Taken Comments Blood Pressure 109/71 03/15/2021 1:59 PM EDT Pulse 75 03/15/2021 1:59 PM EDT Temperature 36.7 C (98 F) 03/15/2021 1:59 PM EDT Respiratory Rate 16 03/15/2021 1:59 PM EDT Oxygen Saturation 95% 03/15/2021 1:59 PM EDT Inhaled Oxygen Concentration - - Weight 59.6 kg (131 lb 6.4 oz) 03/15/2021 1:59 P M EDT Height 175.3 cm (5' 9 ) 01/07/2020 10:52 AM EDT Body Mass Index 19.4 01/07/2020 10:52 AM EDT Plan of Treatment Health Maintenance Due Date Last Done Comments [facility]-Depression Screening 1992 [facility]-/Child/Adol SDOH Screenings 1992 [facility]-DTaP,Tdap,and Td Vaccines (2 - Tdap) 04/21/2004 04/20/2004 [facility]-Hepatitis B Vaccines (3 of 3 - 3-dose series) 08/10/2004 05/15/2021, 03/15/2021, 03/15/2021, Additional history exists [facility]-Varicella Vaccines (1 of 2 - 13+ 2-dose series) 2005 HPV Vaccines (1 - Male 3-dose series) 2007 [facility]- SDOH Screenings 2010 [facility]-Adult SDOH Screenings 2010 [id number] Vaccine (1 - 2023- season) 2024 [facility]-Influenza Vaccine (Season Ended) 2025 [facility]-Zoster Vaccines (1 of 2) 2042 [facility]-HIB Vaccines Aged Out No longer e ligible based on patient's age to complete this topic [facility]-Hepatitis A Vaccines Aged Out No longer eligible based on patient's age to complete this topic [facility]-IPV Vaccines Aged Out No longer e ligible based on patient's age to complete this topic [facility]-Pneumococcal Vaccine: Pediatrics (0 to 5 Years) and At-Risk Patients (6 to 49 Years) Aged Out No longer eligible based on patient's age to complete this topic [facility]-Rotavirus Vaccines Aged Out No lo nger eligible based on patient's age to complete this topic Insurance MEDICAID [id number] MEDICAID
[2025-02-19 14:30] VITALS: BP 124/83; PULSE 80; O2SAT 97
--- NOTE | 2025-02-19 15:03 | ED_ITS ---
Discharge Plan Disposition Patient Disposition: Home, Self-Care Prescriptions Prescriptions: No Action ibuprofen 600 mg tablet 600 mg PO Q6HP PRN (Reason: Mild Pain) Qty: 30 0RF Referrals Follow up/Referrals: Provider,Referral, MD [Primary Care Provider, Medical] - See instructions Activity Restrictions/Add. Instructions Additional Instructions/Restrictions: At this time it was felt you are safe to be discharged home. If new or worsening symptoms please do not hesitate to return the emergency department. Clinical Impressions Clinical Impression: Foreign body in ear Print Language Print Language: Tamazight Discharge ED Provider: Quintin Lagos General Adult HPI General Chief complaint: Ear Stated complaint: grease in ear Time Seen by Provider: 02/19/25 14:27 Mode of Arrival: Ambulatory Source of Information: Patient Description of Symptoms (Recalled from ER Triage Doc. by RN): Patient presents to ED with c/o pressure in the right ear after a grease line on a Bobcat busted and grease went in to his right ear and the right side of his face. Patient denies changes in vision, reports he can not hear out of the right ear. Moderate amount of grease noted in and around right ear. Patient denies pain. History of Present Illness HPI narrative: Patient is a 34-year-old male with no pertinent past medical history presents emergency department for evaluation of industrial grease in his ear. He was working on heavy machinery when part of it became dislodged and shooting into his ear causing him to become concerned present here for continued evaluation. No visual complaints at this time no trauma otherwise. No other acute complaints at this time. Please note that above description of symptoms, in this electronic medical record under categorization of recalled from ER triage doctor by RN are reflective of an initial nursing assessment, however, is not reflective of my full history and physical exam that was personally taken and clarified. Consequentially, this preceding description of symptoms, which may include the patient's categorized chief complaint in the EMR, do not reflect my personal clinical impression, and the ultimate description of history of present illness and patient stated complaints should be deferred to this section of the note. Unless stated otherwise or congruent with this section of the note, additional signs, symptoms, or incongruence should be interpreted as inaccurate with my clinical impression. Related Data Previous Rx's ?Medication ?Instructions ?Recorded ibuprofen 600 mg tablet 600 mg PO Q6HP PRN Mild Pain #30 09/15/24 tabs Allergies Allergy/AdvReac Type Severity Reaction Status Date / Time codeine Allergy Rash Verified 10/29/23 14:56 [facility] Disclaimer: The information contained in this section may have been updated after the patient was seen, as this information can be updated by other users. Medical History (Updated 02/19/25 @ 15:02 by Quintin Lagos MD) Cocaine use Heroin use disorder, severe, in sustained remission Bipolar I disorder Surgical History History of knee surgery History of dental surgery History of appendectomy Family History Other No significant family history Social History (Updated 10/29/23 @ 15:00 by Lianne Raymond MA) Smoking Status: Current every day smoker tobacco type: cigarettes packs per day: 2 second hand exposure: Yes alcohol intake: former counseling given: No substance use type: former substance user counseling given: No (he has been clean from everything except 3 months; see above) current occupational status: employed Travel in the last 8 weeks?: None adopted: No caregiver/support person: Yes (his and son) household members: significant other and children housing: house lives independently: Yes marital status: single number of children: 4 number of grandchildren: 0 education level: other details: he completed the 11th grade; never got GED current occupation: [employer] Recent Travel: No sexually active: Yes caffeine: Yes physical activity: none maryjane/mosque: None special maryjane needs: No working smoke detector in home: Yes fire extinguisher in home: Yes carbon monox detector in home: Yes firearms in home: No do you feel safe at home: Yes victim of physical abuse: No victim of emotional abuse: No victim of sexual abuse: No would you like helpful sources: No Have you lived/traveled outside [place] in past 30 days?: No Contact w/someone who lives/traveled outside [place] past 30 days?: No Exposure to someone with infectious disease in past 14 days?: No Do you have a fever (greater than 100.4 F or 38 C)?: No Have you tested positive for COVID-19?: No Exposed to someone with COVID-19 in past 14 days?: No Do you have a sore throat?: No Do you have a cough?: No Do you have any weakness?: No Do you have any diarrhea?: No Are you experiencing any unusual bleeding?: No Do you have any muscle aches/pain?: No Do you have any abdominal pain?: No Are you experiencing loss of taste or smell?: No Other Medical History Have you received the Flu Vaccine for this season: No Have you received the Pneumonia Vaccine: No ROS Obtained: Yes Systems reviewed as appropriate & no additional complaints except as documented Physical Exam General General appearance: alert and in no apparent distress Head Head exam: atraumatic and normocephalic Eye Eye exam: Present PERRL and EOMI ENT ENT exam: Present mucous membranes moist and other (Maroon grease covering the entire pinna of the right ear including the external auditory canal.) Neck Neck exam: Present normal inspection Chest Chest inspection: Present normal inspection and symmetric chest wall rise Respiratory Respiratory exam: Present normal lung sounds bilaterally Cardiovascular Cardiovascular exam: Present regular rate and normal rhythm Extremities Exam Extremities exam: Present normal inspection Neurological Exam Neurological exam: Present alert Psychiatric Psychiatric exam: Present normal affect Skin Skin exam: Present warm and dry Medical Decision Making Medical Records Screening: Per USPSTF and CDC recommendations, given the prevalence of disease in our region, it is our hospital?s policy to screen for HIV and viral Hepatitis for all patients aged 18 and over and those with ongoing risk factors. [place] Inquiry Pt receiving controlled substance: No Vital Signs: 02/19/25 14:04 02/19/25 14:05 02/19/25 14:30 Temperature 98.8 F Temperature Source Oral Pulse Rate 93 H 80 Pulse Rate [Right] 91 H Respiratory Rate 17 17 Blood Pressure 124/83 Blood Pressure [Right Arm] 118/83 Blood Pressure Mean [Right Arm] 94 Blood Pressure Source [Right Arm] Automatic Cuff 02 Sat by Pulse Oximetry 96 98 97 Oxygen Delivery Method Room Air Room Air Room Air Medical Decision Narrative: In summary patient is a 34-year-old male with past medical history described above who presents emergency department for evaluation of grease in his ear. Patient is hemodynamically stable nontoxic-appearing upon, afebrile. Fortunately all the grease was able to be removed and he had limited intrusion into his external auditory canal no tympanic membrane involvement and patient is appropriate for outpatient management at this time. Procedure: Procedure performed was foreign body removal from the right ear. Procedure performed by Quintin Lagos. Using 4 x 4 gauze and multiple Q-tips a significant amount of industrial grease was removed from the right pinna and external auditory canal. Visualization of the right tympanic membrane is normal. Patient tolerated the procedure well. There were no immediate complications. Critical Care Critical Care Time Critical Care Time: No
[2025-02-19 15:06] VITALS: BP 118/85; PULSE 78; RESP 16; TEMP 36.6; O2SAT 97
== END 2025-02-19 15:07 | disposition home or self-care (01) ==
PROVIDERS: Emergency Provider Emergency Medicine
DX: T16.1XXA Foreign body in right ear, initial encounter (principal); F17.210 Nicotine dependence, cigarettes, uncomplicated; F43.10 Post-traumatic stress disorder, unspecified
CPT/HCPCS: 99283

== ENCOUNTER 2025-07-12 10:31 | Outpatient (CLI) | payer OTHER, SELFPAY ==
[2025-07-12 17:33] LABS: Coronavirus 19, PCR Not Detected (NotDetected); Influenza A, PCR Not Detected (NotDetected); Influenza B, PCR Not Detected (NotDetected)
== END 2025-07-12 23:59 | disposition home or self-care (01) ==
LOC: LAB.DROPOF 07-13 08:54
PROVIDERS: Visit Provider Nurse Practitioner
DX: J06.9 Acute upper respiratory infection, unspecified (principal); J02.9 Acute pharyngitis, unspecified
CPT/HCPCS: 87631